=== PATIENT | female | born 2000 | race Caucasian/White ===

== ENCOUNTER 2023-09-01 14:52 | Emergency (ER) | payer BC, SELFPAY ==
--- NOTE | 2023-09-01 15:00 | ED.GENADULT ---
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 She denies any concerns today. Related Data Home Medications Medication Instructions Recorded Confirmed escitalopram oxalate 10 mg tablet 15 mg PO DAILY 09/01/23 09/01/23 norethindrone 1 mg-ethinyl 1 tablet PO DAILY 09/01/23 09/01/23 estradiol 20 mcg (21)-iron 75 mg (7) tablet (Fuentes Fe 04/23 (28)) Allergies Allergy/AdvReac Type Severity Reaction Status Date / Time No Known Allergies Allergy Unknown Unverified 09/01/23 15:01 Review of Systems Review of Systems: Pertinent positives per HPI. Patient denies any fever, chills, rash, headache, visual changes, dizziness, cough, runny nose, sore throat, shortness of breath, chest pain, palpitations, nausea, vomiting, diarrhea, constipation, abdominal pain, or any urinary issues. PMFSH Comments At the time of my signature, I reviewed and agree with the nursing past medical, surgical, social, and family history. There is no relevant family history pertinent to the patient complaint. Exam Narrative: General: Well-developed, well nourished, in no apparent distress Head: Normocephalic, atraumatic Eyes: Pupils round and reactive to light bilaterally, EOM intact, sclera and conjunctive clear, no discharge, lids normal Ears: TMs intact and clear, ear canals clear, no drainage, grossly hearing normal. Nose: Patent, no discharge, no inflammation, no sinus tenderness. Mouth: Oral pharynx normal without lesions or masses, good dentition, MMM. Neck: Supple, trachea midline, no enlargement of anterior or posterior cervical nodes, no thyroid masses palpable. Lymph: No lymphadenopathy Chest: Normal chest wall appearance, even chest rise and fall with respirations, non-tender with palpation. Cardio: Regular rate and rhythm, s1 and s2 normal, no murmurs appreciated. Resp: Clear to auscultation bilaterally, no rhonchi, rales, wheezing or rubs. Abdomen: Soft, pliable, bowel sounds present in all quadrants, non-tender to palpation, no CVAT tenderness. Musculoskeletal: No deformity, non-tender to palpation, grossly normal range of motion, muscle strength strong and equal. Normal gait and station Neuro: No focal deficits, cranial nerves 1-12 intact, sensation within normal limits, Romberg test negative. Extremities: No deformity, no edema, no cyanosis, capillary refill less than 2 seconds, peripheral pulses palpable and strong. Integumentary: [place], warm, and dry, intact without lesion, no rashes. Psych: Alert and oriented x 4, Normal mood and affect, pleasant, good insight and goal oriented. Course Course Emergency Course: Portions of this record may have been created with voice recognition software. Level of Care: Express Care Visit Vital Signs Vital signs: Vital signs reviewed Medical Decision Making MDM Narrative Medical decision making narrative: At the time of visit patient is resting comfortably on the exam table. Patient appears to be nontoxic. 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 Patient has normal exam in the clinic today. Unfortunately we are not able to offer her a update tetanus or completion of the TB testing in the clinic today and recommend her get these done at the health department. Supportive measures were discussed with the patient and they voiced understanding discharge instructions and agrees to treatment plan. Return precautions reviewed Differential Diagnosis Differential Diagnosis: Encounter for wellness exam, normal exam, exam with abnormal findings Discharge Plan Discharge Clinical Jorge Luis
[2023-09-01 15:04] VITALS: BP 132/87; PULSE 107; RESP 20; TEMP 36.8; O2SAT 100
== END 2023-09-01 15:27 | disposition home or self-care (01) ==
PROVIDERS: Emergency Provider Nurse Practitioner Family; PCP Family Medicine
DX: Z00.00 Encounter for general adult medical examination without abnormal findings (principal); F41.9 Anxiety disorder, unspecified
CPT/HCPCS: 99211; G0463

== ENCOUNTER 2023-10-02 10:03 | Emergency (ER) | payer BC, SELFPAY ==
[2023-10-02 10:17] VITALS: BP 118/68; PULSE 107; RESP 16; TEMP 36.4; O2SAT 100
--- NOTE | 2023-10-02 10:32 | ED.UPPEXIN ---
HPI - Extremity Injury (Upper) General Chief Complaint: Ear Stated Complaint: HEAD CONGESTION/EARACHE Time Seen by Provider: 10/02/23 10:20 Source: patient and RN notes reviewed Mode of arrival: ambulatory Limitations: no limitations History of Present Illness HPI narrative: Patient presents today with a one-week history nasal congestion bilateral ear pressure. Denies any additional symptoms to include sore throat, cough fever. Denies known sick contacts. She has been taking Zyrtec, Tylenol, and ibuprofen without much relief. Related Data Home Medications Medication Instructions Recorded Confirmed escitalopram oxalate 10 mg tablet 15 mg PO DAILY 09/01/23 10/02/23 norethindrone 1 mg-ethinyl 1 tablet PO DAILY 09/01/23 10/02/23 estradiol 20 mcg (21)-iron 75 mg (7) tablet (Fuentes Fe 04/23 (28)) Allergies Allergy/AdvReac Type Severity Reaction Status Date / Time No Known Allergies Allergy Unknown Verified 10/02/23 10:17 Review of Systems Review of Systems: CONSTITUTIONAL: Denies body aches, fever, chills, or sweats. EYES: Denies visual changes, redness, or discharge. ENT: Denies rhinorrhea, sore throat. + bilateral ear pressure, congestion CARDIOVASCULAR: Denies chest pain, palpitations, or edema. RESPIRATORY: Denies cough or dyspnea. GASTROINTESTINAL: Denies abdominal pain, nausea, vomiting, or diarrhea. GENITOURINARY: Denies dysuria or hematuria. SKIN: Denies rash, itching, or wounds. MUSCULOSKELETAL: Denies back pain, joint pain, or myalgia. NEUROLOGIC: Denies headache, numbness, tingling, or weakness. PSYCH: Denies depression or anxiety. PMFSH Comments At time of signature, I have reviewed and agree with nursing past medical, surgical, social and family history unless otherwise noted. Please see nursing chart for further information. There is no relevant family history pertinent to the presenting complaint Exam Narrative: GENERAL: Well-appearing, well-nourished, and in no acute distress. HEAD: Normocephalic, atraumatic. EYES: EOMI. No redness or drainage. Conjunctivae normal. ENT: Mucous membranes pink and moist. Nares congested with rhinorrhea. TMs normal bilaterally. Throat normal. Uvula midline. NECK: Normal AROM. CHEST: No respiratory distress. Clear to auscultation. HEART: Regular rate and rhythm. No murmur appreciated. EXTREMITIES: Normal range of motion. No edema. SKIN: Warm, dry, no rash. Capillary refill normal. Normal skin turgor. NEURO: No focal deficits. Alert and oriented x3. Gait steady. PSYCH: Normal affect. No signs of depression or anxiety. Course Course Level of Care: Express Care Visit Vital Signs Vital signs: Vital Signs Temperature 97.6 F 10/02/23 10:17 Pulse Rate 107 H 10/02/23 10:17 Respiratory Rate 16 10/02/23 10:17 Blood Pressure 118/68 10/02/23 10:17 Pulse Oximetry 100 10/02/23 10:17 Oxygen Delivery Room Air 10/02/23 10:17 Temperature 97.6 F 10/02/23 10:17 Pulse Rate 107 H 10/02/23 10:17 Respiratory Rate 16 10/02/23 10:17 Blood Pressure 118/68 10/02/23 10:17 Pulse Oximetry 100 10/02/23 10:17 Oxygen Delivery Room Air 10/02/23 10:17 Reviewed MDM - Extremity Injury (Upper) MDM Narrative Medical decision making narrative: Patient's symptoms are due to viral URI. Discussed [id number] medication use and duration of illness. No prescription medications indicated at this time. Anticipatory guidance given. ED precautions given Differential Diagnosis Differential diagnosis: Likely other (URI, AOM, serous otitis, sinusitis) Critical Care Time Critical Care Time Critical Care Time: No Discharge Plan Discharge Clinical Impression: Upper respiratory infection Qualifiers: URI type: unspecified URI Qualified Code(s): J06.9 - Acute upper respiratory infection, unspecified Patient Disposition: Home, Self-Care Condition: Stable Instructions: Upper Respiratory Infection (DC) Additional Ins
== END 2023-10-02 10:38 | disposition home or self-care (01) ==
PROVIDERS: Emergency Provider Nurse Practitioner; PCP Family Medicine
DX: J06.9 Acute upper respiratory infection, unspecified (principal)
CPT/HCPCS: 99211; G0463

== ENCOUNTER 2024-02-16 14:45 | Emergency (ER) | payer BC, SELFPAY ==
--- NOTE | 2024-02-16 14:47 | ED.URI ---
HPI - URI/Sore Throat General Chief Complaint: Upper Respiratory Infection Stated Complaint: Sore Throat/Eye Time Seen by Provider: 02/16/24 14:46 Source: patient Mode of arrival: ambulatory Limitations: no limitations History of Present Illness HPI Narrative: Maylin is a 23-year-old female patient presenting to the clinic today with complaints of sore throat, nasal congestion, cough, and left eye drainage. She reports symptoms started 3-4 days ago. She denies any known fever. Denies any fever chills. States that her eye was matted shut this morning and she has some eye irritation. Denies any foreign body or injury to the left eye. Green mucopurulent discharge noted MD elicited complaint: sore throat and nasal congestion Related Data Home Medications Medication Instructions Recorded Confirmed escitalopram oxalate 10 mg tablet 15 mg PO DAILY 09/01/23 10/02/23 norethindrone 1 mg-ethinyl 1 tablet PO DAILY 09/01/23 10/02/23 estradiol 20 mcg (21)-iron 75 mg (7) tablet (Fuentes Fe 04/23 (28)) Allergies Allergy/AdvReac Type Severity Reaction Status Date / Time No Known Allergies Allergy Unknown Verified 10/02/23 10:17 Review of Systems Review of Systems: Pertinent positives per HPI. Patient denies any fever, chills, rash, headache, visual changes, dizziness, shortness of breath, chest pain, palpitations, nausea, vomiting, diarrhea, constipation, abdominal pain, or any urinary issues. PMFSH Comments At the time of my signature, I reviewed and agree with the nursing past medical, surgical, social, and family history. There is no relevant family history pertinent to the patient complaint. Exam Narrative: General: Well-developed, obese, in no apparent distress Head: Normocephalic, atraumatic Eyes: Pupils equally round and reactive to light bilaterally, EOM intact, right sclera and conjunctive clear, no discharge, lids normal, left sclera and conjunctiva injected with green mucopurulent discharge noted in the inner canthus Ears: TMs intact and congested ear canals clear, no drainage, grossly hearing normal. Nose: Nares patent, clear nasal discharge, no inflammation, no sinus tenderness. Mouth: Oral pharynx red without lesions or masses, good dentition, MMM. Neck: Supple, trachea midline, no enlargement of anterior or posterior cervical nodes, no thyroid masses or goiter palpable. Cardio: Regular rate and rhythm, s1 and s2 normal, no murmur appreciated. Resp: Clear to auscultation bilaterally, no rhonchi, rales, wheezing or rubs Course Course Emergency Course: Portions of this record may have been created with voice recognition software. Level of Care: Express Care Visit Vital Signs Vital signs: Vital signs reviewed MDM - URI/Sore Throat MDM Narrative Medical decision making narrative: At the time of visit patient is resting comfortably on the exam table. Patient appears to be nontoxic. Labs: Strep test was negative in the clinic today. We will send strep for culture if this comes back positive we will contact him place you on antibiotics at that time Plan: I suspect patient has conjunctivitis with URI/pharyngitis. Prescription for polymyxin eyedrops was sent to the pharmacy. Supportive measures were discussed with the patient and they voiced understanding discharge instructions and agrees to treatment plan. Return precautions reviewed Differential Diagnosis Differential diagnosis: Likely upper respiratory infection, otitis media, sinusitis, viral infection, bronchitis, influenza, pharyngitis and other (COVID) Discharge Plan Discharge Clinical Impression: Upper respiratory infection Qualifiers: URI type: unspecified URI Qualified Code(s): J06.9 - Acute upper respiratory infection, unspecified Pharyngitis Qualifiers: Pharyngitis/tonsillitis etiology: unspecified etiology Qualified Code(s): J02.9 - Acute pharyngitis, unspecified Conjunctivitis Qualifiers: Conjunctivitis type: acute Acute conjunctivitis type: unspecified Laterality: left Qualified Code(s): H10.32 - Unspecified acute conjunctivitis, left eye Patient Disposition: Home, Self-Care Condition: Stable Instructions: Antibiotic Form, Pharyngitis (ED), Cold Symptoms (ED), Conjunctivitis (ED) Additional Instructions: Strep test was negative in the clinic today. We will send strep for culture. Take prescription medications only as prescribed-polymyxin eyedrops Increase fluids and stay well hydrated Tylenol/motrin for pain/fever Flonase and OTC antihistamines as directed Vicks vapor rub to open sinuses Sinus rinses for congestion Cepacol spray, cough drops, throat lozenges, warm tea with honey/lemon, gargle salt water to soothe throat BRAT diet for diarrhea Clear liquids x 24 hours then advance as tolerated for nausea/vomiting Go to the ED if you develop a worsening in your condition- high fever not controlled by Tylenol or Motrin, dehydration, weakness, lethargy, shortness of breath, or chest pain. Follow up with your PCP in 3-5 days if symptoms persist. Prescriptions: New polymyxin B sulf-trimethoprim 10,000 unit- 1 mg/mL drops 1 drp LEFT EYE Q3H 7 Days Qty: 10 0RF Rx Instructions: while awake; do not exceed 6 doses in 24 hours No Action norethindrone-e.estradiol-iron [Fuentes Fe 04/23 (28)] 1 mg-20 mcg (21)/75 mg (7) tablet 1 tablet PO DAILY escitalopram oxalate 10 mg tablet 15 mg PO DAILY Follow-up/Referrals: UNKNOWN,DOCTOR [Non-Staff] - Stand Alone Forms: Work/School Release IP Time of Disposition: 15:11 Quality NIHSS Nursing Documentation ED NIHSS nursing documentation: reviewed/agree
[2024-02-16 15:07] VITALS: BP 124/85; PULSE 117; RESP 16; TEMP 36.6; O2SAT 99
[2024-02-16 15:09] LABS: EDSTREPNEGPOS1 Negative (Negative)
== END 2024-02-16 15:25 | disposition home or self-care (01) ==
PROVIDERS: Emergency Provider Nurse Practitioner Family
DX: J06.9 Acute upper respiratory infection, unspecified (principal); J02.9 Acute pharyngitis, unspecified; H10.32 Unspecified acute conjunctivitis, left eye; F41.9 Anxiety disorder, unspecified
CPT/HCPCS: 87081; 87880; 99213; G0463

== ENCOUNTER 2024-09-22 15:36 | Emergency (ER) | payer OTHER, SELFPAY ==
[2024-09-22 15:39] VITALS: BP 143/76; PULSE 127; RESP 20; TEMP 36.4; O2SAT 99
--- NOTE | 2024-09-22 16:29 | ED_ITS ---
HPI - General Adult General Chief complaint: Headache Stated complaint: head ache, sinus issues Time Seen by Provider: 09/22/24 15:55 History of Present Illness HPI narrative: This is a 23-year-old female presenting for viral syndrome. 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 Her mostly since about includes body aches, nausea and diarrhea. She has been treated multiple times with steroids and nebulizers and other medications which she states do not really help. Related Data Home Medications ?Medication ?Instructions ?Recorded ?Confirmed ?Last Taken ?Type escitalopram oxalate 10 mg tablet 15 mg PO DAILY 09/01/23 02/16/24 Unknown History norethindrone 1 mg-ethinyl 1 tablet PO DAILY 09/01/23 02/16/24 Unknown History estradiol 20 mcg (21)-iron 75 mg (7) tablet (Fuentes Fe 04/23 ()) Allergies Allergy/AdvReac Type Severity Reaction Status Date / Time No Known Allergies Allergy Unknown Verified 09/22/24 15:43 Exam Narrative: APPEARANCE: No apparent distress. Well-appearing Head: atraumatic. EYES: EOMI, NOSE: Atraumatic NECK: Trachea midline RESPIRATORY: No increased rate of breathing clear to auscultation CARDIOVASCULAR: RRR, no peripheral edema ABDOMINAL: Non-distended soft nontender MUSCULOSKELETAl: No obvious deformities NEURO: Alert. Moving 4/4 extremities SKIN:: Warm, dry. Normal color PSYCHIATRIC: Normal affect Course Vital Signs Vital signs: Vital Signs Temperature 97.6 F 09/22/24 15:39 Pulse Rate 127 H 09/22/24 15:39 Respiratory Rate 20 09/22/24 15:39 Blood Pressure 143/76 H 09/22/24 15:39 Pulse Oximetry 99 09/22/24 15:39 Temperature 97.6 F 09/22/24 15:39 Pulse Rate 127 H 09/22/24 15:39 Respiratory Rate 20 09/22/24 15:39 Blood Pressure 143/76 H 09/22/24 15:39 Pulse Oximetry 99 09/22/24 15:39 Medical Decision Making MDM Narrative Medical decision making narrative: -Course: 23-year-old female presenting with viral symptoms. Patient initially tachycardic at 1 7. This improved to 107 without intervention. Review of the EMR shows the patient has always tach in the low 100s. Patient is well appearing overall. 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 Patient educated on expected course of these illnesses and symptomatic treatment. Patient discharged with return precautions. -DDX includes but is not limited to: Viral syndrome, bronchitis, COVID, flu pneumonia Vital Signs Vital Signs: Vital Signs Temperature 97.6 F 09/22/24 15:39 Pulse Rate 127 H 09/22/24 15:39 Respiratory Rate 20 09/22/24 15:39 Blood Pressure 143/76 H 09/22/24 15:39 Pulse Oximetry 99 09/22/24 15:39 Temperature 97.6 F 09/22/24 15:39 Pulse Rate 127 H 09/22/24 15:39 Respiratory Rate 20 09/22/24 15:39 Blood Pressure 143/76 H 09/22/24 15:39 Pulse Oximetry 99 09/22/24 15:39 Lab Data Labs: Lab Results 09/22/24 Range/Units 16:11 Influenza A (RT-PCR) Pending Influenza B (RT-PCR) Pending RSV (RT-PCR) Pending SARS-CoV-2 RNA (RT-PCR) Pending Discharge Plan Discharge Clinical Impression: Acute viral syndrome Patient Disposition: Home Condition: Stable Instructions: Antibiotic Form, Viral Syndrome (ED) Additional Instructions: You were seen in the emergency department for a viral syndrome. Use Motrin Tylenol for body aches. Can use [id number] Pepto-Bismol for diarrhea. Use Zofran for nausea. Return if you feel your getting worse or if you develop any new or worsening symptoms. Otherwise please follow-up your primary care physician. Patient Language: Welsh Prescriptions: New ondansetron 4 mg tablet,disintegrating 4 mg PO Q8H PRN (Reason: nausea and vomiting) Qty: 30 0RF No Action norethindrone-e.estradiol-iron [Fuentes Fe 04/23 ()] 1 mg-20 mcg (21)/75 mg (7) tablet 1 tablet PO DAILY escitalopram oxalate 10 mg tablet 15 mg PO DAILY polymyxin B sulf-trimethoprim 10,000 unit- 1 mg/mL drops 1 drp LEFT EYE Q3H 7 Days Qty: 10 0RF Rx Instructions: while awake; do not exceed 6 doses in 24 hours Follow-up/Referrals: PHYSICIAN,[facility]ER [Primary Care Provider] -
[2024-09-22 16:36] VITALS: BP 119/68; PULSE 104; RESP 17; TEMP 36.5; O2SAT 100
[2024-09-22 16:57] LABS: Influenza A QL RT-PCR Negative (Negative); Influenza B QL RT-PCR Negative (Negative); RSV RNA, RT-PCR Negative (Negative); SARS-CoV-2 RNA PCR Negative (Negative)
== END 2024-09-22 17:08 | disposition home or self-care (01) ==
PROVIDERS: Emergency Provider Emergency Medicine
DX: B34.9 Viral infection, unspecified (principal); Z20.822 Contact with and (suspected) exposure to COVID-19
CPT/HCPCS: 87637; 99283

== ENCOUNTER 2024-11-26 11:11 | Emergency (ER) | payer OTHER, SELFPAY ==
--- NOTE | ~2024-11-26 | CT_ITS ---
EXAMINATION: CT abdomen pelvis w con DATE: 11/26/2024 14:25 INDICATION: Abdominal pain TECHNIQUE: Computed tomography (CT) of the abdomen and pelvis was performed without intravenous contrast. The dose-length product was 669.49 mGy-cm. COMPARISON: None. FINDINGS: Lung bases are unremarkable. Heart size normal. No significant pleural or pericardial effusion. Fatty infiltration of the liver. Nonobstructive bowel gas pattern. The spleen, pancreas, adrenal glands and kidneys are unremarkable. Small hiatal hernia. No free air or free fluid. There is thickening of the descending colon, sigmoid colon and rectum, suspicious for colitis, most likely infectious or inflammatory. No acute osseous abnormality. IMPRESSION: 1. Mild thickening of the left colon and rectum, suspicious for colitis, most likely infectious/inflammatory. Reviewed, dictated and finalized at location O. IMPRESSION: 1. Mild thickening of the left colon and rectum, suspicious for colitis, most l ikely infectious/inflammatory.
[2024-11-26 11:38] VITALS: BP 127/87; PULSE 106; RESP 16; TEMP 36.4; O2SAT 100
--- OUTSIDE RECORDS SUMMARY | 2024-11-26 11:52 | XMS_ITS | Patient Health Record ---
Author Organization [facility] [employer] [facility] Address [address] [place] [address] Care Team Providers Care Weave Defect Charting Clerk Name Role Phone Eugenia Chavez Unavailable [phone] Allergies No Known Allergies Reason For Referral No Information Medications Medication SIG (Take, Route, Frequency, Duration) Notes Start Date End Date Status Escitalopram Oxalate 20 MG Tablet 1 tablet Oral Once a day; Duration: 90 days Active Fuentes Fe 04/23 1-20 MG-MCG Tablet Oral 08/05/2023 Active traZODone HCl 50 MG Tablet 1 tablet at b edtime as needed Orally Once a day; Duration: 90 days Active Immunizations Vaccine Route Administration Date Status Comme nts DTaP Unknown 02/09/2002 Administered DTaP Unknown 04/11/2002 Administered DTaP Unknown 06/05/2002 Administered DTaP Unknown 08/02/2007 Administered Hep A, ped/adol, 2 dose Unknown 11/27/2012 Administered Hep A, ped/adol, 2 dose Unknown 11/27/2013 Administered Hep B, adolescent or pediatr ic (11-19), 3 dose schedule Unknown 2001 Administered Hep B, adolescent or pediatr ic (11-19), 3 dose schedule Unknown 01/10/2003 Administered Hib, unspecified formulation Unknown 04/11/2002 Adminis tered Hib, unspecified formulation Unknown 06/12/2002 Adminis tered Hib, unspecified formulation Unknown 01/10/2003 Adminis tered Hib-Hep B Unknown 02/09/2002 Administered HPV (human papillomavirus), quadrivalent, 3 dose schedule Unknown 11/27/2012 Administered HPV9 (human papillomavirus), nonavalent Unknown 12/27/2019 Administered Influenza virus vaccine, quadrivalent (IIV4), split virus, 0.25 mL dosage Unknown 04/19/2015 Administered Influenza virus vaccine, quadrivalent (IIV4), split virus, 0.25 mL dosage Unknown 01/06/2018 Administered IPV Unknown 02/09/2002 Administered IPV Unknown 04/11/2002 Administered IPV Unknown 06/12/2002 Administered IPV Unknown 08/02/2007 Administered Meningococcal B, OMV Unknown 12/27/2019 Administered Meningococcal B, OMV Unknown 01/28/2020 Administered Meningococcal MCV4O Unknown 01/06/2018 Administered Meningococcal MCV4P Unknown 11/27/2013 Administered MMR Unknown 01/10/2003 Administered MMR Unknown 08/02/2007 Administered Novel [id number], preservative free Unknown 05/18/2023 Administered Pneumococcal conjugate PCV 7 Unknown 04/11/2002 Adminis tered Pneumococcal conjugate PCV 7 Unknown 06/12/2002 Adminis tered Pneumococcal conjugate PCV 7 Unknown 09/29/2002 Adminis tered Pneumococcal conjugate PCV 7 Unknown 01/10/2003 Adminis tered Tdap Unknown 11/27/2013 Administered Varicella Unknown 04/05/2003 Administered Varicella Unknown 08/02/2007 Administered Social History Tobacco Use: Social History Observation Description Date Details (start date - stop date) Current Smoker NA - NA Sex Assigned At : Social History Observation Description Sex Assigned At Female Social History Miscellaneous: Social Info Question Answer Notes Advance Care Planning Are you your own decision-maker Yes Do you have Power of Primary Teaching Assistant for Health or Medi juan antonio? No Tobacco Use: Social Info Question Answer Notes Tobacco Control (Standard) Tobacco use: Current smoker Additional Details Category Social Info Options Details Migrated Social History Migrated Social History Alcohol Intake: Occasional 08/05/2023,Tobacco Years: Never smoker 05/19/2023 Problems Problem Type SNOMED Code ICD Code Onset Dates Problem Status W/U Status Risk Notes Problem Generalized anxiety disorder (F41.1) Active confirmed Vital Signs Heart Rate 98 /min 10/15/2024 Height-cm 160.02 cm 10/15/2024 Blood pressure diastolic 82 mm Hg 10/15/2024 Weight-kg 94.35 kg 10/15/2024 Height 63.00 in 10/15/2024 Blood pressure systolic 130 mm Hg 10/15/2024 Weight 208 lbs 10/15/2024 BMI 36.84 kg/m2 10/15/2024 Encounters Encounter Location Date Provider Diagnosis [facility] [address] [facility] [address] [address] 01/09/2024 Eugeniaterry Chavez Generalized anxiety disorder F41.[address] [facility] [address] [place] [address] 04/16/2024 Eugeniaterry Chavez Generalized anxiety disorder F41.[address] [address] 10/15/2024 Eugeniaterry Chavez Generalized anxiety disorder F41.[address] [facility] [address] [place] [address] 03/30/2024 Eugenia Scott [address] [address] 07/30/2024 Eugeniaterry [facility] Assessments Encounter Date Diagnosis (ICD Code) Assessment Notes Treatment Notes Treatment Clinical Notes Section Notes 01/09/2024 Generalized anxiety disorder (ICD-10 - F41.1) Common side effects to SSRI medications include headaches, dry mouth/eye, GI upset (including indigestion, nausea, diarrhea), sleeping problems (insomnia or drowsiness), decreased libido, blurred vision, dizziness. Generally, side effects will subside or lessen with time and are common during drug initiation and dose changes. If they persist please contact the office. 04/16/2024 Generalized anxiety disorder (ICD-10 - F41.1) Common side effects to SSRI medications include headaches, dry mouth/eye, GI upset (including indigestion, nausea, diarrhea), sleeping problems (insomnia or drowsiness), decreased libido, blurred vision, dizziness. Generally, side effects will subside or lessen with time and are common during drug initiation and dose changes. If they persist please contact the office. 10/15/2024 Generalized anxiety disorder (ICD-10 - F41.1) Common side effects to SSRI medications include headaches, dry mouth/eye, GI upset (including indigestion, nausea, diarrhea), sleeping problems (insomnia or drowsiness), decreased libido, blurred vision, dizziness. Generally, side effects will subside or lessen with time and are common during drug initiation and dose changes. If they persist please contact the office. 01/09/2024 Other Increase Lexapro to 20mg daily for anxiety. Start Trazodone 50mg qHS PRN for insomnia Patient educated on all medications including potential benefits, side effects, risks. Educated on proper dosing schedule and importance of compliance. 04/16/2024 Other Stable, continue current medications. Refills sent in. Patient educated on all medications including potential benefits, side effects, risks. Educated on proper dosing schedule and importance of compliance. -Assessment and treatment plan reviewed with patient. -Compliance with treatment plan importance discussed. -Discussed the risks/benefits of this medication -Discussed medication side effects. -Contact office if symptoms worsen. -Discussed that it can take up to 6-8 weeks to see full therapeutic effects of psychotropic medications. -Crisis prevention hotline [phone]. 10/15/2024 Other Stable on current medication regimen, continue at current doses. -Refills sent in today -No concerns today Patient educated on all medications including potential benefits, side effects, risks. Educated on proper dosing schedule and importance of compliance. -Assessment and treatment plan reviewed with patient. -Compliance with treatment plan importance discussed. -Discussed the risks/benefits of this medication -Discussed medication side effects. -Contact office if symptoms worsen. -Discussed that it can take up to 6-8 weeks to see full therapeutic effects of psychotropic medications. -Crisis prevention hotline [phone]. Plan Of Treatment Next Appt Details Provider Name:Eugenia doherty, 03/18/2025 01:00:00 PM, [address] [facility] [address], [facility] [address] [place], [address], Insurance Providers Payer Name Payer Address Payer Phone Subscriber Number Group Number Insured Name Patient Relationship to Insured Coverage Start Date Coverage End Date [employer] [place] [id number] [place] [address] [id number] JASS LYNNE Self - patient is the insured Medical (General) History Medical History History ICD Code Problems: Generalized anxiety disorder Obesity Patient encounter status , Hospitalization History Reason Date(Month/Year) no hx [facility] admissions
--- OUTSIDE RECORDS SUMMARY | 2024-11-26 11:52 | XMS_ITS | Clinical Summary ---
Author Organization [facility] Medical Office Building A Address [address] [place] [address] Care Team Providers Care Gift Consultant Name Role Phone Johanna Batista MD Primary Care Provide r Eugenia Camarillo [employer] Unavailable [phone] Wayne Fitzpatrick MD Unavailable Meera Gardner MD Unavailable [phone] Allergies No known active allergies Medications Fuentes Fe 04/23, , 1 mg-20 mcg (21)/75 mg (7) per tablet Take 1 tablet by mouth daily Active escitalopram (LEXAPRO) 20 mg tablet Take 1 tablet (20 mg total) by mouth daily Active albuterol HFA (PROVENTIL HFA,VENTOLIN HFA,PROAIR HFA) 90 mcg/actuation inhalerIndicatio ns:Cough, unspecified type,Bronchitis Inhale 2 puffs every 6 (six) hours as needed for wheezing 1 each 1 5 Active traZODone (DESYREL) 50 mg tablet Take 1 tablet (50 mg total) by mouth nightly 5 Active ibuprofen (ADVIL,MOTRIN) 800 mg tablet Take 1 tablet (800 mg total) by mouth 3 (three) times a day 90 tablet 5 Active lidocaine (ASPERCREME) 4 % adhesive patch,medicated Place 1 patch on the skin daily for 12 hours 30 patch 5 Active Active Problems Problem Noted Date Diagnosed Date Thrombocytosis 2023 Assessment & Plan (06/11/2024 2:38 PM CDT): Chronic Stable Continue following with oncology Anxiety 05/18/2023 Assessment & Plan (06/11/2024 2:37 PM CDT): chronic Continue lexapro 20mg daily Denies SI/HI Report to the ER should this occur Managed by psychiatry F/u prn Assessment & Plan (07/01/2023 11:35 PM CDT): Improved Continue lexapro 10mg daily Denies SI/HI Report to the ER should this occur Continue following therapy and they will take over the medication F/u in prn Assessment & Plan (05/18/2023 10:23 AM SHOP FOREMAN): New concern Not at goal EMILY score of 8 Will refer to therapy Start lexapro 10mg daily Denies SI/HI Report to the ER should this occur F/u in 6 weeks for monitoring Risks and benefits discussed Class 2 obesity due to exces s calories without serious comorbidity with body mass index (BMI) of 36.0 to 36.9 in adult 05/18/2023 Assessment & Plan (06/11/2024 2:38 PM CDT): She was counseled on the importance of maintaining a healthy weight and the risks of obesity. Weight loss recommended. Encourage 150min/ week of exercise Encourage 1500 calories in a day for weight loss Assessment & Plan (05/18/2023 11:18 AM SHOP FOREMAN): She was counseled on the importance of maintaining a healthy weight and the risks of obesity. Weight loss recommended. Encourage 150min/ week of exercise Encourage 1500 calories in a day for weight loss Encounter for wellness examination 05/17/2023 Assessment & Plan (06/08/2024 2:07 PM SHOP FOREMAN): Labs reviewed and discussed Flu Pap smear follows with [facility] tdap F/u in 1 year for annual Assessment & Plan (05/18/2023 10:15 AM SHOP FOREMAN): Ordered CBC, cmp, lipid, hgb a1c, HIV, hep c, TSH w/ reflex to t4 gc chlamydia Flu given Pap smear follows with ob [facility] F/u in 1 year for annual Encounters Date Type Department Care Team Description 10/15/2024 3:30 PM CDT Office Visit [facility] Primary Care at [address] [address] Johanna Morales MD Pain of right hip (Primary Dx) 09/19/2024 Results Follow-Up [facility] Primary Care at [address] [phone] Johanna Morales MD XR Chest PA Lateral 2 Views 09/17/2024 2:10 PM CDT - 09/17/2024 11:59 PM CDT Hospital Encounter [facility] [address] [place] [address] Cough, unspecified type; Bronchitis Discharge Disposition: Discharge to home or self care 09/17/2024 1:30 PM CDT Office Visit [facility] Primary Care at [address] [address] Johanna Morales MD Cough, unspecified type (Primary Dx); Bronchitis from Last 3 Months Immunizations Immunization Administration Dates Next Due DTaP 08/02/2007, 3,04/11/2002,02/09 HPV, Quadrivalent 11/27/2012 HPV9 12/27/2019 Hep A, Pediatric 11/27/2013,11/27/2012 Hep B / HiB 02/09/2002 Hep B, Adolescent or Pediatric 01/10/2003,2001 HiB 01/10/2003,06/12/2002,04/11/2002 IPV 08/02/2007, 3,04/11/2002,02/09 Influenza, Live, Intranasal, Quadrivalent 04/19/2015 Influenza, Quadrivalent, Spl it, Intramuscular 01/06/2018,04/19/2015 Influenza, Quadrivalent, Spl it, Preservative Free, Intramuscular 05/18/2023 Influenza, Unspecified 01/04/2024,2023(Deferred: Patient Refused),01/07/2023 MMR 08/02/2007,01/10/2003 Meningococcal B, OMV (Bexsero) 01/28/2020,2019 Meningococcal B, unspecified 01/28/2020,12/27/19 20 Meningococcal Conjugate (Menveo) 01/06/2018 Meningococcal MCV4P (Menactra) 11/27/2013 Pneumococcal Conjugate 7-Valent 01/11/20 03,09/29/2002,06/12/2002,04/11 Tdap 11/27/2013 Varicella 08/02/2007,04/05/2003 Medical History Medical History Date Comments Anxiety Offically May 2023 Family History Medical History Relation Name Comments Alcohol abuse Father Sami Anxiety disorder Father Sami Mental illness Father Sami Cancer Maternal Grandfather Hema Diabetes Maternal Grandfather Hema Diabetes type II Maternal Grandfather Hema Hypertension Maternal Grandfather Hema Anxiety disorder Maternal Grandmother Flores Hearing loss Maternal Grandmother Flores Skin cancer Maternal Grandmother Flores Alcohol abuse Mother Elo Allergy (severe) Mother Elo Anxiety disorder Mother Elo Mental illness Mother Elo Obesity Mother Elo Diabetes type II Mother's Sister 1 bi polar Mother's Sister 1 Mental illness Mother's Sister 2 Rae Obesity Mother's Sister 2 Rae Rashes / Skin problems Mother's Sister 2 Rae Diabetes type II Paternal Grandfather Skin cancer Paternal Grandfather Diabetes Paternal Grandmother Whit Diabetes type II Paternal Grandmother Whit Heart attack Paternal Grandmother Whit Miscarriages / Stillbirths Paternal Grandmother Whit Obesity Paternal Grandmother Whit Rashes / Skin problems Paternal Grandmother Whit Anxiety disorder Sister 1 Depression Sister 2 Pamela Mental illness Sister 2 Pamela Relation Name Status Comments Father Sami Alive Maternal Grandfather Hema Alive Maternal Grandmother Flores Alive Mother Elo Alive Mother's Sister 1 Mother's Sister 2 Rae Alive Paternal Grandfather Paternal Grandmother Whit Alive Sister 1 Sister 2 Pamela Alive Social History Tobacco Use Types Packs/Day Years Used Date Smoking Tobacco: Some Days Vaping Passive Smoke Exposure: Current Smokeless Tobacco: Never AUDIT-C Answer Date Recorded Q1: How often do you have a drink containing alc ohol? Monthly or less 12/21/2023 Q2: How many drinks containi ng alcohol do you have on a typical day when you are drinking? 1 or 2 12/21/2023 Frequency of Binge Drinking Not on file 12/03 PHQ-2 Answer Date Recorded PHQ-2 Total Score (If total score is 3 or more points, staff should administer the PHQ-9) 0 10/15/2024 Comments No Sex and Gender Information Value Date Recorded Sex Assigned at Not on file Legal Sex Female 6:21 PM SHOP FOREMAN Gender Identity Female 07/01/2023 10:10 AM CDT Sexual Orientation Straight 07/01/2023 10 :10 AM CDT Obstetrics History Last Filed Vital Signs Vital Sign Reading Time Taken Comments Blood Pressure 114/86 10/15/2024 3:21 PM CDT Pulse 112 10/15/2024 3:21 PM CDT Temperature 37.2 C (98.9 F) 10/15/2024 3:21 PM CDT Respiratory Rate 18 10/15/2024 3:21 PM CDT Oxygen Saturation 96% 10/15/2024 3:21 PM CDT Inhaled Oxygen Concentration - - Weight 94.4 kg (208 lb 3.2 oz) 10/15/2024 3:21 P M CDT Height 160 cm (5' 2.99) 10/15/2024 3:21 PM CDT Body Mass Index 36.89 10/15/2024 3:21 PM CDT Plan of Treatment Health Maintenance Due Date Last Done Comments Chlamydia and Gonorrhea (GC/CT) Screening 05/19/2024 05/19/2023 Influenza Vaccine (#1) 2024 , 05/18/2023, 01/07/2023, Additional history exists Cervical Cancer Screening 03/21/2025 03/21/2024 Pneumococcal vaccine <65 (1 of 1 - PPSV23, PCV20, or PCV21) 05/27/2025 01/10/2003, 09/29/2002, 06/12/2002, Additional history exists Postponed from 12/10/2007 (Patient declined, but will receive in the future) Covid-19 Vaccine ( season) 2025 09/16/2020, 08/19/2020 Postponed from 12/04/2023 (Patient declined, but will receive in the future) DTaP/Tdap/Td Vaccine (6 - Td or Tdap) 06/11/2025 11/27/2013, 08/02/2007, 06/05/2002, Additional history exists Postponed from 11/28/2023 (Patient declined, but will receive in the future) Regular Well Visit/Exam 18-64 06/11/2025 06/11/2024, 05/18/2023 Depression Screening 10/15/2025 10/15/2024, 06/11/2024, 05/18/2023 Hepatitis B Screening Completed 01/10/2003 , 02/09/2002, 2001 Varicella Vaccines Completed 08/02/2007, 04/05/2003 HPV Vaccines Completed 12/27/2019, 11/27/2012 Meningococcal B Vaccine Completed 01/28/20 20, 01/28/2020, 12/27/2019, Additional history exists Hepatitis C Screening Completed 05/19/2023 Procedures Procedure Name Priority Date/Time Associated Diagnosis Comments XR CHEST PA LATERAL 2 VIEWS Schedule Routine, Read Routine (OP Routine) 09/17/2024 2:17 PM CDT Cough, unspecified type Bronchitis POC INFLUENZA A/B, COVID-19 ANTIGEN Routine 09/17/2024 1:30 PM CDT Cough, unspecified type POCT RESPIRATORY SYNCYTIAL VIRUS Routine 09/07/2024 1:30 PM CDT Cough, unspecified type HM PAP SMEAR WITH HPV Routine 03/21/2024 2:14 PM SHOP FOREMAN HEPATITIS C ANTIBODY Routine 05/19/2023 12:50 PM SHOP FOREMAN Preventative health care Need for hepatitis C screening test N. GONORRHOEAE/C. TRACHOMATIS AMPLIFICATION Routine 05/19/2023 12:50 PM SHOP FOREMAN from Last 3 Months or Most Recently Relevant to Health Maintenance Results * XR Chest PA Lateral 2 Views (09/17/2024 2:17 PM CDT) Anatomical Region Laterality Modality Body, Chest N/A Computed Radiogr aphy 09/19/2024 12:1 3 PM CDT Narrative 09/19/2024 12:13 PM CDT EXAM DESCRIPTION: XR CHEST PA LATERAL 2 VIEWS REASON FOR STUDY: cough Cough for 2 weeks No surgery Smoker TECHNIQUE: Frontal and lateral radiographic views of the chest were acquired. COMPARISON: None Available FINDINGS: LUNGS/PLEURA: There is no focal infiltrate or evidence of pneumothorax. No significant pleural effusion. HEART/MEDIASTINUM: The heart size is normal. Normal mediastinal and hilar contours. LINES/TUBES: None. BONES: No acute findings. OTHER: No other significant finding. IMPRESSION: No active cardiopulmonary disease. THIS IS AN ELECTRONICALLY VERIFIED FINAL REPORT 09/19/2024 12:13 PM - Electronically signed by Alvin Reed M.D. RW: [email or web address] Report ID: [id number] Reading Location: [id number] Procedure Note Alvin Reed MD - 09/19/2024 EXAM DESCRIPTION: XR CHEST PA LATERAL 2 VIEWS REASON FOR STUDY: cough Cough for 2 weeks No surgery Smoker TECHNIQUE: Frontal and lateral radiographic views of the chest wereacquired. COMPARISON: None Available FINDINGS: LUNGS/PLEURA: There is no focal infiltrate or evidence of pneumothorax.No significant pleural effusion. HEART/MEDIASTINUM: The heart size is normal. Normal mediastinal and hilar contours. LINES/TUBES: None. BONES: No acute findings. OTHER: No other significant finding. IMPRESSION: No active cardiopulmonary disease. THIS IS AN ELECTRONICALLY VERIFIED FINAL REPORT 09/19/2024 12:13 PM - Electronically signed by Alvin Reed M.D. RW: [email or web address] Report ID: [id number] Reading Location: [id number] Johanna Batista MD IMG XR PROCEDURES Fin al Result * POC Influenza A/B, COVID-19 antigen (09/17/2024 1:30 PM CDT) Pathologist [facility] Influenza A Ag, POC Negative Negative [facility] Influenza B Ag, POC Negative Negative [facility] COVID-19 Ag POC Presumptive Negative Presumptive Negative, Invalid [facility] Nasal 09/17/2024 1:30 PM CDT Johanna Batista MD POINT OF CARE TEST OR DERABLES Final Result [facility] PCP [facility] [address] [facility] [address] [place] [address] * POCT respiratory syncytial virus (09/07/2024 1:30 PM CDT) Pathologist [facility] RSV Rapid Ag Negative Nasal 09/07/2024 1:30 PM CDT Johanna Batista MD POINT OF CARE TEST OR DERABLES Final Result * (ABNORMAL) HM PAP SMEAR WITH HPV (03/21/2024 2:14 PM SHOP FOREMAN) Pathologist [facility] Scribed Pap Smear w/HPV Abnormal [facility] Final Result * N. gonorrhoeae/C. trachomatis Amplification Urine (05/19/2023 12:50 PM SHOP FOREMAN) Pathologist [facility] C. trachomatis Not Detected [facility] ([place]) Comment:Testing performed by : [facility], [address] [facility], [place]., [address] N. gonorrhoeae Not Detected [facility] Comment: Interpretive Data This assay detects Chlamydia trachomatis and Neisseria gonorrhoeae by nucleic acid amplification testing (NAAT). This assay has been cleared by the [place] Food and Drug administration. The performance characteristics of this test have been verified by the [facility] Molecular Infectious Disease laboratory. The performance characteristics of this test have not been evaluated in individuals less than 14 years of age. Current Interpretive Data was last revised on 2023. Testing performed by: [facility], [address] [place] [address]., [id number] Urine 05/19/2023 12:5 0 PM SHOP FOREMAN 05/19/2023 8:06 PM SHOP FOREMAN Johanna Batista MD LAB MICROBIOLOGY - GE NERAL ORDERABLES Final Result [facility] [address] [facility] [place] [address] * Hepatitis C antibody Blood (05/19/2023 12:50 PM SHOP FOREMAN) Hep C Ab Nonreactive Nonreactive [facility] ([place]) Comment: Interpretive Data Nonreactive: Antibodies to HCV not detected. Does NOT exclude the possibility of recent exposure to HCV. Equivocal: Equivocal for HCV antibodies. Supplemental molecular testing will be automatically performed to determine infection status in accordance with current CDC screening recommendations. Reactive: Positive for HCV antibodies. This may represent current or past HCV infection. Supplemental molecular testing will be automatically performed to determine current infection status in accordance with current CDC screening recommendations. Interpretive data was last revised on 2019. Testing performed by: [facility], [address] [place] [address]., [id number] Blood 05/19/2023 12:5 0 PM SHOP FOREMAN 05/19/2023 9:29 PM SHOP FOREMAN Narrative [facility] ([place]) - 05/19/2023 10:13 PM SHOP FOREMAN fasting Johanna Batista MD LAB MICROBIOLOGY - GE NERAL ORDERABLES Final Result [facility] [address] [facility] [employer] [place], [place] [id number] from Last 3 Months or Most Recently Relevant to Health Maintenance Insurance [facility] [employer] [place] Care Teams Gift Consultant Relationship Specialty Start Date End Date Johanna Batista MD [address] [place] [address] PCP - General Family Medicine 05/18/23 Eugenia Camarillo NP [address] [facility] [address] [facility] [address] [place] [address] Psychiatry 06/11/24 Wayne Fitzpatrick MD [address] [facility] [address] [place] [address] Medical Oncologist/Echocardiographer Hematology and Oncology 06/11/24 Meera Gardner MD [address] [facility] [address] [place] [address] Referring Physician Gynecology 06/11/24
--- NOTE | 2024-11-26 13:44 | ED.GENADULT ---
HPI - General Adult General Chief complaint: Nausea/Vomiting/Diarrhea Stated complaint: blood in stool, diarrhea Time Seen by Provider: 11/26/24 13:16 History of Present Illness HPI narrative: 23-year-old morbidly obese female presents to the ER complaining of bright red blood in her his stools for 2 weeks. Patient reports having diarrhea for 2 weeks. 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 Patient reports lower abdominal cramping. Denies nausea or vomiting. Related Data Home Medications ?Medication ?Instructions ?Recorded ?Confirmed ?Last Taken ?Type escitalopram oxalate 10 mg tablet 15 mg PO DAILY 09/01/23 02/16/24 Unknown History norethindrone 1 mg-ethinyl 1 tablet PO DAILY 09/01/23 02/16/24 Unknown History estradiol 20 mcg (21)-iron 75 mg (7) tablet (Fuentes Fe 04/23 ()) Allergies Allergy/AdvReac Type Severity Reaction Status Date / Time No Known Allergies Allergy Unknown Verified 11/26/24 11:12 Review of Systems Review of Systems: All systems reviewed & are unremarkable except as noted in HPI and below Exam Const: General: healthy appearing, no acute distress and alert Nutritional Appearance: well nourished and obese Orientation/consciousness: patient oriented x3 Limitations: no limitations HENMT: Head: normal to inspection Face and sinus: normal facial exam Mouth: Yes Normal oral and palatal mucosa present Neck: Neck: normal visual inspection Chest: Chest palpation & inspection: normal inspection of the chest Resp: Effort & Inspection: normal respiratory effort Auscultation: clear to auscultation bilaterally Cardio: Rate: regular rate Rhythm: regular rhythm GI: GI Palp: Yes Soft to palpation Auscultation: normal bowel sounds Rectal Exam: hemorrhoids Other: External hemorrhoids noted : General: Yes no CVA tenderness Back/Spine/Pelvis: Back: no CVA tenderness Skin: General skin exam: normal color Rashes: no rashes Wounds: no wounds Neuro: General: patient oriented x3, moves all extremities and CN's II-XI intact bilaterally Speech: normal speech Gait exam (Neuro): Normal gait present Extrem: General: normal to inspection Psych: Mental Status: mental status grossly normal Affect: normal affect Attitude: cooperative Course Vital Signs Vital signs: Vital Signs Temperature 36.4 C L 11/26/24 11:38 Pulse Rate 106 H 11/26/24 11:38 Respiratory Rate 16 11/26/24 11:38 Blood Pressure 127/87 11/26/24 11:38 Pulse Oximetry 100 11/26/24 11:38 Oxygen Delivery Room Air 11/26/24 11:38 Temperature 36.4 C L 11/26/24 11:38 Pulse Rate 106 H 11/26/24 11:38 Respiratory Rate 16 11/26/24 11:38 Blood Pressure 127/87 11/26/24 11:38 Pulse Oximetry 100 11/26/24 11:38 Oxygen Delivery Room Air 11/26/24 11:38 Medical Decision Making MDM Narrative Medical decision making narrative: 23-year-old female presents ER complaining of bright red blood in her stool for several days. Patient also admitted to of diarrhea for [address] scan shows evidence of colitis. Lab work was reassuring. Differential diagnosis includes diverticulitis, laboratory bowel disease, colitis, hemorrhoids, anal fissure. External hemorrhoids were noted on exam. Hemorrhoids and colitis or likely the result of the patient's symptoms. Will refer patient to GI for further observation Vital Signs Vital Signs: Vital Signs Temperature 36.4 C L 11/26/24 11:38 Pulse Rate 106 H 11/26/24 11:38 Respiratory Rate 16 11/26/24 11:38 Blood Pressure 127/87 11/26/24 11:38 Pulse Oximetry 100 11/26/24 11:38 Oxygen Delivery Room Air 11/26/24 11:38 Temperature 36.4 C L 11/26/24 11:38 Pulse Rate 106 H 11/26/24 11:38 Respiratory Rate 16 11/26/24 11:38 Blood Pressure 127/87 11/26/24 11:38 Pulse Oximetry 100 11/26/24 11:38 Oxygen Delivery Room Air 11/26/24 11:38 Lab Data 11/26/24 14:08 11/26/24 14:08 Labs: Lab Results 11/26/24 11/26/24 Range/Units 14:08 14:12 WBC 11.0 H (4.5-10.0) K/mm3 RBC 5.18 (4.2-5.4) M/mm3 Hgb 14.0 (12.0-15.0) g/dL Hct 42.8 (37.0-47.0) % MCV 82.6 (80-100) fl MCH 27.0 (26-34) pg MCHC 32.7 (32-36) g/dl RDW 12.6 (11.5-14.5) % Plt Count 475 H (150-375) k/mm3 MPV 9.0 (7.4-10.4) fl Immature Gran % (Auto) 0.3 (0-0.5) % Neut % (Auto) 59.4 (45.5-73.1) % Lymph % (Auto) 28.5 (18.3-44.2) % [place] % (Auto) 7.5 (2.6-8.5) % Eos % (Auto) 3.9 (0-4.4) % Baso % (Auto) 0.4 (0.2-1.2) % Lymph # (Auto) 3.13 (0.9-3.2) K/mm3 [place] # (Auto) 0.8 H (0.1-0.6) K/mm3 Eos # (Auto) 0.4 H (0-0.3) K/mm3 Baso # (Auto) 0.0 (0.0-0.1) K/mm3 Abs Immat Gran (auto) 0.03 (0.00-0.031) K/mm3 Absolute Neuts (auto) 6.5 (1.3-6.7) K/mm3 Absolute Nucleated RBC 0.000 (0.0-0.012) K/mm3 Nucleated RBC % 0.0 (0.0-0.2) % Sodium 138 (137-145) mmol/L Potassium 4.1 (3.4-5.0) mmol/L Chloride 104 (98-107) mmol/L Carbon Dioxide 24 (22-30) mmol/L Anion Gap 10 (4-12) mmol/L BUN 8 (7-17) mg/dL Creatinine 0.82 (0.7-1.0) mg/dL Estim Creat Clear Calc 102 ml/min Estimated GFR > 60 (59 - ) Glucose 89 (65-110) mg/dL Calcium 9.6 (8.4-10.2) mg/dL Total Bilirubin 0.6 (0.2-1.3) mg/dL AST 27 (14-36) U/L ALT 19 (6-35) U/L Alkaline Phosphatase 104 (38-126) U/L Total Protein 8.6 H (6.3-8.2) g/dL Albumin 4.4 (3.5-5.1) g/dL Lipase 57 (23-300) U/L Beta HCG, Quant < 2.39 mIU/ML Urine Color Yellow (Yellow) Urine Appearance Clear (Clear) Urine pH 5.5 (5.0-9.0) Ur Specific Clark 1.025 (1.001-1.035) Urine Protein Negative (Negative) mg/dL Urine Glucose (UA) Negative (Negative) mg/dL Urine Ketones Negative (Negative) mg/dL Ur Blood (Man) Negative (Negative) Urine Nitrate Negative (Negative) Urine Bilirubin Negative (Negative) Urine Urobilinogen 0.2 (<2.0) mg/dL Leukocyte Esterase Rfl Negative (Negative) CARMINA/UL POC Urine HCG, Qual Negative (Negative) Discharge Plan Discharge Clinical Impression: Hemorrhoids, Colitis Patient Disposition: Home Condition: Stable Instructions: Antibiotic Form, Hemorrhoids (DC), Colitis (ED) Patient Language: Kinyarwanda Prescriptions: New hydrocortisone acetate [Anusol-HC] 25 mg suppository 25 mg RECTAL DAILY Qty: 12 0RF No Action norethindrone-e.estradiol-iron [Fuentes Fe 04/23 (28)] 1 mg-20 mcg (21)/75 mg (7) tablet 1 tablet PO DAILY escitalopram oxalate 10 mg tablet 15 mg PO DAILY polymyxin B sulf-trimethoprim 10,000 unit- 1 mg/mL drops 1 drp LEFT EYE Q3H 7 Days Qty: 10 0RF Rx Instructions: while awake; do not exceed 6 doses in 24 hours ondansetron 4 mg tablet,disintegrating 4 mg PO Q8H PRN (Reason: nausea and vomiting) Qty: 30 0RF Follow-up/Referrals: PHYSICIAN NOT ON STAFF,NONSTAFF [Primary Care Provider] Jeff Linton MD [Physician, Gastroenterology] Time of Disposition: 15:06
[2024-11-26] MEDS: SODIUM CHLORIDE 0.9% IV 1,000 ML 999 ML IV CONT (14:04)
[2024-11-26 14:14] LABS: BEDSIDEPREGUCG Negative (Negative)
[2024-11-26 14:19] LABS: Add Urine Microscopic? NO; Appearance Urine Clear (Clear); Glucose Urine UA Negative (Negative); Hematocrit 42.8 % (37.0-47.0); Hemoglobin 14.0 g/dL (12.0-15.0); Immature Granulocyte Percent A 0.3 % (0-0.5); Leukocyte Esterase Ur Negative LEU/UL (Negative); Lymphocytes Absolute Auto 3.13 K/mm3 (0.9-3.2); Mean Corpuscular HGB Conc 32.7 g/dl (32-36); Mean Corpuscular Hemoglobin 27.0 pg (26-34); Mean Corpuscular Volume 82.6 fl (80-100); Nitrate Urine Negative (Negative); Nucleated Red Blood Cells Absolute Auto 0.000 K/mm3 (0.0-0.012); Nucleated Red Blood Cells Perc 0.0 % (0.0-0.2); Platelet Count Result 475 k/mm3 (150-375); Red Blood Count 5.18 M/mm3 (4.2-5.4); Specific Grav Ur 1.025 (1.001-1.035); White Blood Count 11.0 K/mm3 (4.5-10.0)
[2024-11-26 14:29] LABS: Alanine Aminotransferase 19 U/L (6-35); Albumin Level 4.4 g/dL (3.5-5.1); Alkaline Phosphatase 104 U/L (38-126); Anion Gap 10 mmol/L (4-12); Aspartate Amino Transferase 27 U/L (14-36); Bilirubin,Total 0.6 mg/dL (0.2-1.3); Blood Urea Nitrogen 8 mg/dL (7-17); Calcium 9.6 mg/dL (8.4-10.2); Carbon Dioxide 24 mmol/L (22-30); Chloride 104 mmol/L (98-107); Estimated CRCL calculation 102 ml/min; Estimated Glomerular Filt Rate > 60; Glucose 89 mg/dL (65-110); Lipase 57 U/L (23-300); Potassium 4.1 mmol/L (3.4-5.0); Sodium 138 mmol/L (137-145); Total Protein 8.6 g/dL (6.3-8.2)
[2024-11-26 14:46] LABS: Beta HCG Quantitative < 2.39 mIU/ML
--- OUTSIDE RECORDS SUMMARY | 2024-11-26 15:24 | XMS_ITS | Clinical Summary ---
Author Organization [facility] Medical Office Building A Address [address] [place] [address] Care Team Providers Care Skate Shop Attendant Name Role Phone Johanna Batista MD Primary Care Provide r Eugenia Camarillo MEDICAL REIMBURSEMENT SPECIALIST Unavailable [phone] Wayne Fitzpatrick MD Unavailable Meera Gardner MD Unavailable [phone] Allergies No known active allergies Medications Fuentes [...] prn Assessment & Plan (05/18/2023 10:23 AM EMBEDDED NURSE): New concern Not at goal EMILY score [...] loss Assessment & Plan (05/18/2023 11:18 AM EMBEDDED NURSE): She was counseled on the importance of maintaining a healthy weight and the risks of obesity. Weight loss recommended. Encourage 150min/ week of exercise Encourage 1500 calories in a day for weight loss Encounter for wellness examination 05/17/2023 Assessment & Plan (06/08/2024 2:07 PM EMBEDDED NURSE): Labs reviewed and discussed Flu Pap smear follows with ob at [facility] td[facility] F/u in 1 year for annual Assessment & Plan (05/18/2023 10:15 AM EMBEDDED NURSE): Ordered CBC, cmp, lipid, hgb a1c, HIV, hep c, TSH w/ reflex to t4 gc chlamydia Flu given Pap smear follows with ob at [facility] F/u in 1 year for annual Encounters Date Type Department Care Team Description 10/15/2024 3:30 PM CDT Office Visit [facility] Medical Group Primary Care at [address] [address] Johanna Morales MD Pain of right hip (Primary Dx) 09/19/2024 Results Follow-Up [facility] Primary Care at [address] [address] Johanna Morales MD XR Chest PA Lateral 2 Views 09/17/2024 2:10 PM CDT - 09/17/2024 11:59 PM CDT Hospital Encounter [facility] 1 [place] [address] Cough, unspecified type; Bronchitis Discharge Disposition: Discharge to home or self care 09/17/2024 1:30 PM CDT Office Visit [facility] Medical [facility] Primary Care at [address] [address] Johanna Morales MD Cough, unspecified type (Primary [...] on file Legal Sex Female 6:21 PM EMBEDDED NURSE Gender Identity Female 07/01/2023 10:10 AM CDT [...] SMEAR WITH HPV Routine 03/21/2024 2:14 PM EMBEDDED NURSE HEPATITIS C ANTIBODY Routine 05/19/2023 12:50 PM EMBEDDED NURSE Preventative health care Need for hepatitis C screening test N. GONORRHOEAE/C. TRACHOMATIS AMPLIFICATION Routine 05/19/2023 12:50 PM EMBEDDED NURSE from Last 3 Months or Most Recently [...] Alvin Reed M.D. RW: [id number] Report ID: [id number] Reading Location: [id number] Procedure Note Alvin Reed MD - 09/19/2024 [...] Alvin Reed M.D. RW: [id number] Report ID: [id number] Reading Location: [id number] Johanna Batista MD IMG XR PROCEDURES Fin al Result * POC Influenza A/B, COVID-19 antigen (09/17/2024 1:30 PM CDT) Pathologist [facility] Influenza A Ag, POC Negative Negative [facility] Influenza B Ag, POC Negative Negative [facility] COVID-19 Ag POC Presumptive Negative Presumptive Negative, Invalid [facility] Nasal 09/17/2024 1:30 PM CDT Johanna Batista MD POINT OF CARE TEST OR DERABLES Final Result [facility] PCP [facility] [address] [facility] [address] [place] [address] * POCT respiratory syncytial virus (09/07/2024 1:30 PM CDT) Pathologist [facility] RSV Rapid Ag Negative Nasal 09/07/2024 1:30 PM CDT Johanna Batista MD POINT OF CARE TEST OR DERABLES Final Result * (ABNORMAL) HM PAP SMEAR WITH HPV (03/21/2024 2:14 PM EMBEDDED NURSE) Pathologist [facility] Scribed Pap Smear w/HPV Abnormal [facility] Olga PEREZ HEALTH MAINTENANCE Final Result * N. gonorrhoeae/C. trachomatis Amplification Urine (05/19/2023 12:50 PM EMBEDDED NURSE) Pathologist [facility] C. trachomatis Not Detected [facility] ([place]) Comment:Testing performed by : [facility], [address] [facility], [place]., [address] N. gonorrhoeae Not Detected [facility] ([place]) Comment: Interpretive Data This assay detects Chlamydia trachomatis and Neisseria gonorrhoeae by nucleic acid amplification testing (NAAT). This assay has been cleared by the [place] Food and Drug administration. The performance characteristics of this test have been verified by the [facility] Molecular Infectious Disease laboratory. The performance characteristics of this test have not been evaluated in individuals less than 14 years of age. Current Interpretive Data was last revised on 2023. Testing performed by: [facility], [address] [place] [address]., [address] Urine 05/19/2023 12:5 0 PM EMBEDDED NURSE 05/19/2023 8:06 PM EMBEDDED NURSE Johanna Batista MD LAB MICROBIOLOGY - GE NERAL ORDERABLES Final Result [facility] ([place] 1 [facility] [place] [address] * Hepatitis C antibody Blood (05/19/2023 12:50 PM EMBEDDED NURSE) Hep C Ab Nonreactive Nonreactive [facility] [...] last revised on 2019. Testing performed by: [facility], [address] [place] [address]., [address] Blood 05/19/2023 12:5 0 PM EMBEDDED NURSE 05/19/2023 9:29 PM EMBEDDED NURSE Narrative [facility] ([place]) - 05/19/2023 10:13 PM EMBEDDED NURSE fasting Johanna Batista MD LAB MICROBIOLOGY - GE NERAL ORDERABLES Final Result [facility] [place] 1 [facility] [address] [place] [id number] from Last 3 Months or Most Recently Relevant to Health Maintenance Insurance [facility] [employer] [place] Care Teams Skate Shop Attendant Relationship Specialty Start Date End Date Johanna Batista MD [address] [facility] [facility] [address] [place] [address] PCP - General Family Medicine 05/18/23 Eugenia Camarillo NP [address] [facility] [address] [facility] [address] [place] [address] Psychiatry 06/11/24 Wayne Fitzpatrick MD [address] [facility] [address] [place] [address] Medical Oncologist/Automatic Pilot Mechanic Hematology and Oncology 06/11/24 Meera Gardner MD [address] [facility] [address] [place] [address] Referring Physician Gynecology 06/11/24
[2024-11-26 16:03] LABS: Estimated CRCL calculation 94 ml/min; Estimated Glomerular Filt Rate > 60
== END 2024-11-26 15:28 | disposition home or self-care (01) ==
LOC: ANHED 15:09
PROVIDERS: Emergency Provider Nurse Practitioner Family
DX: K52.9 Noninfective gastroenteritis and colitis, unspecified (principal); K64.4 Residual hemorrhoidal skin tags; E66.01 Morbid (severe) obesity due to excess calories; Z68.36 Body mass index [BMI] 36.0-36.9, adult; Z79.3 Long term (current) use of hormonal contraceptives
CPT/HCPCS: 36415; 74177; 80053; 81003; 81025; 82565; 83690; 84702; 85025; 96360; 99284; J7030; Q9967

== ENCOUNTER 2024-12-22 22:11 | Emergency (ER) | payer OTHER, SELFPAY ==
--- OUTSIDE RECORDS SUMMARY | 2024-11-21 05:00 | XMS_ITS ---
Author Organization [employer] [facility] [employer] [facility] [employer] [place] ([address]) Address [address] [place] [address] Care Team Providers Care Communication Consultant Name Role Phone Johanna Batista Primary Care Provider U Eitan Xavier Unavailable [phone] Allergies No Known Allergies REASON FOR VISIT Chronic upper airway symptoms concerning for uncontrolled atopic disease, eczema, food related reflux symptoms Medications Medication SIG (Take, Route, Frequency, Duration) Notes Start Date End Date Status Escitalopram Oxalate 20 MG 1 tablet Oral ly Once a day Active traZODone HCl Active Fexofenadine HCl 180 MG 1 tablet Swallow whole with water; do not take with fruit juices. Orally Once a day in AM; Duration: 30 days 11/21/2024 Active Cetirizine HCl 10 MG 1 tablet Orally Onc e a day in the evening; Duration: 30 days 11/21/2024 Active Fuentes 04/23 1-20 MG-MCG 1 tablet Orally O nce a day Active Mometasone Furoate 0.1 % 1 application t o affected area as needed Externally twice a day; Duration: 30 days 11/21/2024 Active Flonase Allergy Relief 50 MCG/ACT 2 sprays (1 spray in each nostril) Nasally Twice a day; Duration: 30 days 11/21/2024 Active Social History Tobacco Use: Social History Observation Description Date Details (start date - stop date) Current Smoker NA - NA Sex Assigned At : Social History Observation Description Sex Assigned At Female Tobacco Control (Standard) Question Answer Notes Tobacco use: Current smoker Are you interested in quitting? Thinking about q uitting Additional Findings: Tobacco user e-cigarette Problems Problem Type SNOMED Code ICD Code Onset Dates Problem Status W/U Status Risk Notes Problem Allergic rhinitis caused by pollen (disorder) (04779077) Allergic rhinitis due to pollen (J30.1) Active confirmed Problem Allergic rhinitis caused by animal hair and dander (354219370963475) Allergic rhinitis due to animal (cat) (dog) hair and dander (J30.81) Active confirmed Problem Allergic rhinitis (91411879) Other allergic rhinitis (J30.89) Active confirmed Problem Chronic allergic conjunctivitis (73484678) Other chronic allergic conjunctivitis (H10.45) Active confirmed Problem Chronic rhinitis (98982491) Chronic rhinitis (J31.0) Active confirmed Problem Uncomplicated moderate persistent asthma (087216937) Moderate persistent asthma, uncomplicated (J45.40) Active confirmed Problem Uncomplicated mild persistent asthma (277930627) Mild persistent asthma, uncomplicated (J45.30) Active confirmed Problem Uncomplicated severe persistent asthma (057262731) Severe persistent asthma, uncomplicated (J45.50) Active confirmed Problem Atopic dermatitis (24227867) Atopic dermatitis, unspecified (L20.9) Active confirmed Problem Gastro-esophageal reflux disease without esophagitis (236604603) Gastro-esophageal reflux disease without esophagitis (K21.9) Active confirmed Vital Signs Blood pressure systolic 118 mm Hg 11/22/19 25 Blood pressure diastolic 81 mm Hg 025 Height 63 in 11/21/2024 Weight 210.6 lbs 11/21/2024 BMI 37.3 kg/m2 11/21/2024 Oximetry 100 % 11/21/2024 Encounters Encounter Location Date Provider Diagnosis [facility] [address] [place] [address] 11/21/2024 Eitan Quezada Allergic rhinitis du e to pollen J30.1 ; Allergic rhinitis due to animal (cat) (dog) hair and dander J30.81 ; Other chronic allergic conjunctivitis H10.45 ; Atopic dermatitis, unspecified L20.9 and Gastro-esophageal reflux disease without esophagitis K21.9 Assessments Encounter Date Diagnosis (ICD Code) Assessment Notes Treatment Notes Treatment Clinical Notes Section Notes 11/21/2024 Allergic rhinitis due to pollen (ICD-10 - J30.1) Given the history and symptoms, skin testing was performed to common aeroallergens to determine atopic status. clearly suffers from atopic disease based upon our skin testing and clinical history. Accordingly, we have introduced a new, aggressive medication regimen, discussed nasal washes and allergy-specific avoidance measures. We also discussed adjunctive therapies including subcutaneous, specific allergen immunotherapy as relates to the treatment and prevention of atopic disease. She we will proceed with immunotherapy, conventional, weekly injections. We discussed Risks: bleeding, infection, allergic reaction, anaphylaxis; Benefits: reduced need for medications, improved symptoms, disease modification. Alternatives: watch/wait, change medication regimen, improve allergy avoidance measures. Follow-up in 2 month for interval evaluation and management 11/21/2024 Allergic rhinitis due to animal (cat) (dog) hair and dander (ICD-10 - J30.81) Follow allergen avoidance, meds and consider SCIT as an adjunctive treatment to current regimen 11/21/2024 Other chronic allergic conjunctivitis (ICD-10 - H10.45) Given ocular signs and symptoms I encouraged allergy avoidance measures and meds as above. If symptoms persist, consider adding additional medications including intraocular antihistamine/mas t cell stabilizer, PRN and consider SCIT as an adjunctive measure 11/21/2024 Atopic dermatitis, unspecified (ICD-10 - L20.9) 11/21/2024 Gastro-esophageal reflux disease without esophagitis (ICD-10 - K21.9) 11/21/2024 Other Follow allergen avoidance, meds and consider SCIT as an adjunctive treatment to current regimen Plan Of Treatment Medication Medication Name Sig Start Date Stop Date Notes Fexofenadine HCl 180 MG 1 tablet Swallow whole with water; do not take with fruit juices. Orally Once a day in AM; Duration: 30 days 11/21/2024 Cetirizine HCl 10 MG 1 tablet Orally Onc e a day in the evening; Duration: 30 days 11/21/2024 Mometasone Furoate 0.1 % 1 application t o affected area as needed Externally twice a day; Duration: 30 days 11/21/2024 Flonase Allergy Relief 50 MCG/ACT 2 sprays (1 spray in each nostril) Nasally Twice a day; Duration: 30 days 11/21/2024 Treatment Notes Assessment Notes Allergic rhinitis due to pollen Given th e history and symptoms, skin testing was performed to common aeroallergens to determine atopic status. clearly suffers from atopic disease based upon our skin testing and clinical history. Accordingly, we have introduced a new, aggressive medication regimen, discussed nasal washes and allergy-specific avoidance measures. We also discussed adjunctive therapies including subcutaneous, specific allergen immunotherapy as relates to the treatment and prevention of atopic disease. She we will proceed with immunotherapy, conventional, weekly injections. We discussed Risks: bleeding, infection, allergic reaction, anaphylaxis; Benefits: reduced need for medications, improved symptoms, disease modification. Alternatives: watch/wait, change medication regimen, improve allergy avoidance measures. Follow-up in 2 month for interval evaluation and management Allergic rhinitis due to ani mal (cat) (dog) hair and dander Follow allergen avoidance, meds and consider SCIT as an adjunctive treatment to current regimen Other chronic allergic conjunctivitis Gi reynaldo ocular signs and symptoms I encouraged allergy avoidance measures and meds as above. If symptoms persist, consider adding additional medications including intraocular antihistamine/mast cell stabilizer, PRN and consider SCIT as an adjunctive measure Other Follow allergen avoi dance, meds and consider SCIT as an adjunctive treatment to current regimen Next Appt Details Follow Up: 8 Weeks, Reason: Evaluation and Management and to be sure immunotherapy was initiated and being tolerated Provider Name:Destin KanElvin Farris , 01/02/2025 10:00:00 AM, [address] [facility], [address] [place] [address], [id number], Provider Name:Eitan Quezada, 01/23/2025 01:00:00 PM, [address] [facility], [address], [place], [address], Procedure Notes * Category Sub-Category Detail Notes Skin Testing Number of Skin Tests Performed (including controls): Aeroallergen: Yes Epicutaneous: 72 Food: Yes Epicutaneous: 2 Hymenoptera: Yes Epicutaneous: 1 Total (Epicutaneous): 75 Epicutaneous (New) skin testing was per formed to common aeroallergens, Milk, Wheat, Rabbit, positive and negative controls responded appropriately, revealing positive reactions to, [place], Beech, Birch, Anderson, [place] (Eastern), Elm, Gardner (Shagbark), Maple, Labolt Mix, Orlando Mix, Orlando (Red), Orlando (White), [place] (Yellow), Sweet Gum, [place] (Moroccan), [place] (Black), Bermuda, Brome, Fescue, Red/Landers, Mike, K. Blue (Lisa), Orchard, Redtop, Goldsmith, Elton, Cocklebur, Dock, Red (Sheep Wink), Dock, Yellow, Hemp, Meron Water, Kochia, Milian Elder (Rough), Mugwort, Plantain, Icelandic, Plantain, Icelandic, Cat Hair, Cat Pelt, UF Dog, DM f, DM p, Ragweed Mix, [place]er Thistle, Mineral, Alternaria, Dayna Albicans, Milk, Wheat Progress Notes * Aleta FOSSaDOB:[birth year] (24 yo F)Acc No.[id number]:11/21/2024 Progress Notes Patient: Richa MEYER Provider: Yanely Quezada :2000 A ge:23 Y S ex:Female Date:11/21/2024 Address:[address] [place], [place] [id number] Pcp:Johanna Batista Subjective: * Chief Complaints: * 1 . Chronic upper airway symptoms concerning for uncontrolled atopic disease. 2. Eczema. 3. Food related reflux symptoms. * HPI: * Headache: Intake: Headache Onset W hen did your current headache problem begin??More than 1 year ago W as there a precipitating event to the current headache problem? N one Intake: Headache Characteristics W hich of the following characteristics do you associate with your headache or migraine? Wake up headaches (headache already developed upon awakening),Can be unilateral or bilateral,Orbital (located around the eyes(s)),Frontal (located in forehead region),Temporal (located in samaritan region),Occipital (located in back of head region),Squeezing or pressure pain,Throbbing or pulsating pain,Sharp or stabbing pain,Headache duration > 4 hours to all day untreated or unsuccessfully treated,Frequency 4 to 14 days/month A lleviating factors D ark room A ggravating factors L ight/bright light,Noise/loud noise,Movement or physical activity Intake: Headache-associated Aura or Other Symptoms G astrointestinal symptoms associated with headaches D ecreased appetite S ensory symptoms associated with headaches?Scalp tenderness,Noise sensitivity,Ringing in ears V isual symptoms associated with headaches?Light sensitivity V estibular symptoms associated with headaches?Dizziness/unsteadiness,Lightheadedness,Sensation of movement (vertigo) M ental/Emotional symptoms associated with headaches P oor concentration,Restlessness,Mood change V asomotor symptoms associated with headaches?Stuffy nose,Runny nose G eneral symptoms associated with headaches?Fatigue or lack of energy,Neck or shoulder pain,Excessive yawning Intake: Headache Triggers W hat do you perceive as triggers for your headache or migraine? S tress,Weather changes (barometric pressure change),Hormone changes (e.g. menstrual cycle),Too much or too little caffeine,Seasonal allergies Intake: Headache Previous Testing H ave you had any previous testing related to your headache or migraine N o Intake: Headache Associated Conditions D o you have concerns about seasonal or year-round allergies? Y es D o you have concerns about sleep or sleep quality? N o D o you have concerns about your mood or do you have a history of depression? N o D o you have neck pain or stiffness? N o D o you have a history of prior concussion??No D o you have concerns about hormone imbalances? N o D o you have sinus problems? Y es * Allergic Rhinoconjunctivitis: Allergic rhinitis D o you have or suspect you have allergic rhinitis (itchy eyes, sneezing, congestion or runny nose triggered by allergies)? Y es W hich areas and what symptoms are involved? Please fill out each section below as needed. e yes,ears,cough,nose,sore throat,headache,sinuses W hich of the following trigger your allergic rhinitis symptoms? e xercise,tree pollen,grass pollen,weed pollen,cold air,sinus infections,house cleaning (dusting or vacuuming),occupational exposures,mold,damp or musty areas,colds or flu,perfumes,hair spray,air pollution,spring (season),summer (season),fall (season),cats,rabbits D o you have any of the following other symptoms associated with your allergic rhinitis? e xcessive daytime sleepiness,restless sleep,manager secondary headaches Eyes S pecific affected area: b oth (bilateral) O ccurence? i ntermittent H ow frequent? i nfrequent W hen does this mostly occur? a nytime S ymptoms: i tching,watering,redness,sensitive to light,swelling of the lids Ears S pecific affected area: b oth (bilateral) H ow often? i ntermittent S ymptoms: p lugged,ache,infections Nose S pecific area affected: b oth (bilateral) O ccurence? i ntermittent H ow frequent? d aily W hen does this mostly occur? a nytime S ymptoms? i tching,congestion,sneezing jags,postnasal drainage,sinus infection,awaken very congested in the a.m. Sinuses D o you have sinus pain? Y es H ave you lost sense of taste? N o W here? c enter of forehead above eyes (frontal),over left cheek (maxillary),over right cheek (maxillary,over nasal bridge between the eyes (ethmoid) H ave you been treated with antibiotics for sinusitis? Y es W hich antibiotics? a moxicillin H ow often in the past year? o nce W hat is the longest duration of antibiotics prescribed and completed? 6 -10 days H ave any of the following treatments improved your sinus symptoms? n o treatment to date H ave you ever had a CT scan or xray? Y es W here? O ther hospital W hen? 0 09/2024 H ave you ever undergone sinus surgery? N o Sore Throat O ccurence? i ntermittent H ow frequent? i nfrequent W hen does this usually occur? a nytime E ffective treatments? t hroat lozenges Cough F requency: d aily I s cough more bothersome during night? Y es I s phlegm produced? Y es S putum color? c lear,yellow,green I s significant phlegm produced during the night? N o E ffective treatments? o ral steroids (Prednisone or Medrol) Headache S pecific area(s) affected? o moni left cheek (maxillary),over right cheeck (maxillary),back area of the head,base of neck,left side of head (samaritan),right side of head (samaritan) O ccurence? i ntermittent H ow frequent? i nfrequent W hat time of day does this mostly occur? a nytime A ccompanying symptoms? p honophobia (bothered by sound) * Asthma: Cough D o you have a recurrent cough? Y es A pproximately, when did your cough start??08/11/2024 H ow often do you cough? d aily W hat triggers your cough? e xercise,tree pollen,grass pollen,weed pollen,cold air,sinus infections,emotions or stress,laughter,house dusting or vacuuming,weather changes,occupational exposures,perfumes,colds or flu,spring (season), (season),fall (season),winter (season),air conditioning W hich treatments have been effective for your cough? o ral steroid (Prednisone or Medrol) I s your cough more bothersome at night? Y es I s sputum produced? Y es W hat color is your sputum? c lear,yellow,green I s there significant phlegm production during the night? N o Wheezing D o you have recurrent wheezing or a history of wheezing sometime in your life? Y es D id you have symptoms of asthma as a child??Yes D id you have frequent respiratory infections as a child? Y es W ere you ever hospitalized in the first 12 months of life for a respiratory infection in childhood? N o D o you still have wheezing? Y es H ow often do you get it? 2 -5 times per year I s your wheezing changing? s jada L ist months when wheezing is worse: J anuary,June,July,August,September,October,November,December,January,March W hat triggers your wheezing? e xercise,cold air,sinus infections,laughter,weather changes,winter (season) D o you take an inhaled, rescue bronchodilator medication? N o H ave you taken oral steroids (Prednisone or Medrol) in the past? Y es H ow many times in the last year? 1 Nocturnal Symptoms D o you have any of the following respiratory symptoms at night? c oughing that interrupts sleep Physical Performance H ow many flights of stairs can you climb without stopping? (Enter 99 for unlimited) 3 I f there are limitations, what symptoms limit further activity? c ough,shortness of breath D o you have any of the following additional problems? e xcessive daytime sleepiness,restless sleep Effective treatments for cough and or wheezing P rescription cough medicine: T enrique Birch escue inhaler or nebulizer treatment: A lbuterol O ral steroid: P rednisone * Atopic dermatitis: Atopic dermatitis - Eczema D o you have chronic or recurrent atopic dermatitis or eczema? Y es W hen did the eczema start? b irth B nadege parts involved? u pper arms,lower arms,outer elbows,elbow creases (AC fossa),scalp,face,neck,front of trunk,legs,backs of knees (popliteal fossa),fingers,hands,ankles,wrists,feet H ow long do episodes of your eczema last??continuous H ow frequently do you have symptoms? d aily W hat time(s) of the day does the rash occur??any time (no predilection) A re there any times of the year when your eczema worsens (seasonal exacerbation)? s ummer,fall,winter P erceived triggers or provocateurs of eczema??showering,bathing,temperature changes (change to cold),grass pollen D o symptoms change when you are away from home? u nchanged D o any of the following physical stimuli initiate or worse your rash? c old water,warm water,hot water,cold wind or weather A s the eczema resolves, are there skin changes? s caling or flaking,hyperpigmentation (darker skin color) * Prior Evaluations and Treatments: Prior evaluations and treatments H ave you been evaluated by another physician for allergic rhinitis, cough, wheezing, asthma, urticaria, angioedema, atopic dermatitis or eczema??Yes W hat type(s) of of provider(s)? P [facility] care physician H ave you undergone testing for any aforementioned conditions or symptoms? N o H ave you ever been on allergy immunotherapy??No H ave you ever passed out during a blood draw, shot or vaccination? N o Last dose of antihistamine: c etirizine (Zyrtec) 0 10/05/2024 n charlie antihistamine (azelastine, olopatadine, azelastine, Astepro, Patanase) 0 10/20/2024 H as your antihistamine been effective in controlling any of your symptoms? N o D o you take any other psychiatric medication??Yes N jada: t razadone (Desyrel or Deprax - also goes by many other names),Other L ast dose? 0 11/12/2024 * Infections: Vaccination History F or children, are childhood vaccines up to date: Y es H ave you ever had a flu shot? Y es D ate of last flu shot? 0 05/18/2023 H ave you ever had a pneumococcal vaccine ([id number]-Trnvufsdf)? Y es H ave you ever had a tetanus vaccine (NDvo-Xkyy-Nc)? Y es D ate of last tetanus vaccine? 0 11/27/2013 D id it contain pertussis as well? Y es Ear Infections D o you have frequent ear infections? Y es H ow many episodes over the past 12 months??5 D id you ever have ear tubes placed to help alleviate recurrent ear infections? N o D id you have exposure to passive cigarette smoke in infancy? Y es H ave you been seen by an wafer polisher or crab steamer to evaluate your immune system function for recurrent ear infections? N o Sinusitis (Sinus infections) D o you have frequent episodes of sinusitis??Yes H ow many episodes over the past 12 months??5 H ave you been treated with antibiotics for sinusitis? Y es H ow many courses of antibiotics for sinusitis in the past year? 3 -5 times W hat is the longest course of antibiotics you have taken for sinusitis? 1 0 days H ave you been seen by an wafer polisher or crab steamer to evaluate your immune system function for recurrent sinus infections? N o Sinus Symptoms and Surgery D o you have chronic or recurrent sinus symptoms? Y es D o you have a history of nasal polyps? N o D o you have sinus pain? Y es D o you have a loss of sense of taste? N o H ave you used any of the following treatments for your sinuses? n charlie spray decongestants,nasal salt water irrigations,oral antihistamines,oral decongestants H ave you ever had a sinus CT or X-Ray? N o H ave your ever undergone sinus surgery? N o Bronchitis History D o you get frequent bronchitis? N o Pneumonia History H ave you ever had pneumonia or recurrent pneumonia? Y es H ow many episodes in your entire life? 2 H ave you been treated with antibiotics for pneumonia? Y es W ere antibiotics oral, IV or both? o ral H ave you been hospitalized for treatment??No H ave you been seen by an wafer polisher or crab steamer to evaluate your immune system function for recurrent pneumonia N o Skin and Other Infections D o you get frequent skin infections (cellulitis)? N o D o you get any other frequent infections??No * Food allergy: Food Allergy D o you currently have or have you ever had any proven or suspected food allergies? Y es W hat food(s)? m ilk W hat symptoms do you experience when foods are ingested? n ausea,bloating,diarrhea H ow quickly do symptoms come on after food ingestion? w ithin 20 minutes H ave you ever been hospitalized or treated urgently for symptoms of a severe allergic reaction (anaphylaxis)? N o D o you carry self-injectable epinephrine for your prior reaction(s)? N o H ave you previously seen an wafer polisher for evaluation of possible food allergy? N o * Medication allergy: Medication Allergy D o you feel you are allergic to any medications? Y es W hat type of medication? a ntibiotic (Penicillin or Amoxicillin or other antimicrobial) H ow was the medication administered? o ral W hat was the medication administered for??ear infection,sinus infection I f antibiotic, what type: p enicillin-derivative H ave you been evaluated by an wafer polisher previously for possible drug allergy? N o * Introduction: HPI: Shante joshua is a pleasant 23-year-old female referred by her mother to our clinic as her mother is a patient. Her primary care physician is Flaquita Schroeder MD. she presents for evaluation of chronic severe allergic rhinoconjunctivitis, food related GERD symptoms, mild atopic dermatitis. She presents describing a long history of classic severe allergic rhinitis symptoms including nasal congestion, rhinorrhea, sneezing paroxysms, and red itchy irritated eyes the symptoms occur on a perennial basis and have been present for many years. She has tried multiple medications including Zyrtec, Ora, Benadryl and nasal Flonase without significant improvement. She presents for further evaluation and more aggressive recommendations. Her past history is significant for mild atopic dermatitis mainly involving her lower extremities with scaly dry lesions diagnosed as eczema by others in the past. She is currently only using a topical moisturizing lotion. Her past medical history is otherwise unremarkable. Environmentally she lives in a home where there is carpet, 1 indoor cat, 2 indoor dogs, 1 rabbit and she also vapes.. * ROS: A LLERGY: runny nose Y es. s cratchy throat Y es. i tchy eyes Y es. e ar fullness Y es. s inus congestion Y es. P ositive p er the HPI and history, otherwise unremarkable. S PECIAL SENSES: Positve for n one. i tching in ears Y es. r inging in ears Y es. d ry eyes Y es. i tching eyes Y es. c onjunctivitis Y es. e ar infections Y es. C ONSTITUTIONAL: weight gain Y es. l oss of appetite Y es. f ever Y es. w eakness Y es. f atigue Y es. n ight sweats Y es. P ositive for n one. E NT: cold Y es. c ough Y es. c hange in voice Y es. s ore throat Y es. r inging in ears Y es. s inus pain Y es. P ositive p er the HPI and history, otherwise unremarkable. R ESPIRATORY: shortness of breath Y es. c hest congestion Y es.?cough Y es. P ositive p er the HPI and history, otherwise unremakable. ? O PHTHALMOLOGY: eye irritation Y es. d rainage from eyes Y es. P ositive for p er the HPI and history, otherwise unremarkable. i tching Y es. s ensitivity to light Y es. w atering Y es. s welling of the eyelids Y es. r edness Y es. E NDOCRINOLOGY: fatigue Y es. s leep disturbance Y es. c old intolerance Y es. h eat intolerance Y es. P ositive for n one. C ARDIOLOGY: shortness of breath Y es. P ositive for n one. G ASTROENTEROLOGY: nausea Y es. v omiting Y es. d iarrhea Y es. i ndigestion Y es. P ositive for n one. U ROLOGY: Positive for n one. D ERMATOLOGY: rash Y es. m ole Y es. d ry or sensitive skin?Yes. a cne Y es. P ositive for p er the HPI and history, otherwise unremakable.? N EUROLOGY: headache Y es. i nsomnia Y es. P ositive for?none. H EMATOLOGY/LYMPH: Positive for n one. M USCULOSKELETAL: joint pain Y es. l eg cramps Y es. j oint stiffness Y es. P ositive for n one. P SYCHOLOGY: high stress level Y es. s leep disturbances Y es.?mental or physical abuse Y es. a nxiety Y es. P ositive for n one. ? A ll other review of systems per the HPI and history, otherwise unremarkable. * Medical History: A nxiety. * Surgical History: D enies Past Surgical History. * Hospitalization/Major Diagno stic Procedure: D enies Past Hospitalization. * Family History: F ather: , Yes. M other: alive, Yes. P aternal Grand Father: Yes. P aternal Grand Mother: Yes. M aternal Grand Father: Yes. M aternal Grand Mother: Yes. P aternal uncle: Yes. M aternal aunt: Yes. S iblings: Yes. C hildren: No. * Social History: C affeine: Yes. M arital Status What is your marital status? s korina A lcohol Screening Do you ever drink alcoholic beverages? Y es Number of drinks per occasion: 2 Frequency? E very other month S moking Have you ever smoked tobacco: n ever smoked Additional Findings: Tobacco User T rivial cigarette smoker (less than one cigarette/day) Are you a : c urrent smoker R ecreational drug use Have you ever used recreational drugs? Y es What kind of drugs? m arijuana D etails on consumption of certain products? Do you regularly consume products with aspartame; Equal or NutraSweet? N o Do you regularly consume products with artificial coloring??Yes Have you ever noticed worsening of your rash with these food items? N o E xercise What kind(s) of exercise do you perform regularly? w alking How often do you perform this exercise? d aily A re any of the following personal care products containing fragrance, dye or preservatives used regularly? Shampoo: Y es Conditioner: Y es Soap: Y es Laundry Detergent: Y es Fabric Softener: N o Deodorant: Y es Perfume, cologne, after shave: Y es Air freshners or other scented products: Y es Hair coloring dyes or rinses: N o O ccupation Are you currenly employed? 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 N o How much work have you missed due to breathing difficulty within the past year? 1 week Please describe the effect of your illness on your job p oor concentration,poor performance,decreased enjoyment,loss of work,loss of income Do you have any pending or planned legal action against your current or former employer which pertains to your medical illness? N o Do you anticipate that your evaluation will be used in any legal action against your current employer or former employer? N o Have you had any job with high exposure to fumes, chemicals, dust or other noxious substances? N o Are you currently a student? Y es How much school have you missed due to breathing difficulty within the past year? 1 week Please describe the effect of your illness on your school performance: p oor concentration,poor performance,lack of enjoyment E nvironmental History Living environment: p rivate home,apartment,with pets,with relatives Where is the home located? r [place],near any major factories or industries,suburb Age of home: 4 7 How long have you lived there? 5 years or more How many people live in the home? 4 H ome description Basement: Y es Any water damage in basement? N o Smokers in the home? N o Smokers outside the home? N o Air Conditioning? Y es Central Air? Y es Forced air heating? N o Fireplace? Y es Used how often? w inter months only Wood burning stove? N o Do you vacuum the home? Y es Air purification systems? N o Pillow and mattress dust-proof encasings? N o Do you use a humidifier? N o Do you own any pets? Y es What kind(s)? (click all that apply) c ats,dog,fish,rabbit Where do your pets sleep? a nywhere in the house Fabric softeners used? N o Plants in the home? Y es How many? 3 Where are they kept? k itchen,other room in home Is there carpeting in your bedroom? Y es Age of carpet? 1 0 Do you have ardh-th-tesb carpeting? Y es What is the age of your carpeting? 1 0 What is the age of your mattress (years)? 1 0 What material(s) are used to manufacture your bedding and pillow? s ynthetic What is the age of your pillow (years)? 3 What material are your bedding items made of? s ynthetic Do you sleep with quilts or blankets or a duvet? Y es What material? s ynthetic How many cats? 1 How many dogs? 2 How many fish? 1 How many rabbits? 1 T obacco Control (Standard) Tobacco use: C urrent smoker Are you interested in quitting? T hinking about quitting Additional Findings: Tobacco user e -cigarette * Medications: T aking Fuentes 04/23 1-20 MG-MCG Tablet 1 tablet Orally Once a day , Taking traZODone HCl , Taking Escitalopram Oxalate 20 MG Tablet 1 tablet Orally Once a day , Medication List reviewed and reconciled with the patient * Allergies: N .K.D.A. Objective: * Vitals: B P:118/81mm Hg, HR:94/min, Pulse Oximetry:100%, Ht: 63 in, Wt: 210.6 lbs, BMI:37.3Index. * Examination: G eneral examination: General appearance: p leasant, well-developed, well-nourished. HEENT: p upils equal, round, and reactive to light and accommodation, conjunctiva are injected bilaterally, no tenderness to palpation of the sinuses, TM's without evidence of acute infection, turbinates 4+ swollen and pale inferiorly bilaterally, clear rhinorrhea is present, no polyps noted, no septal perforation, posterior oropharynx is erythematous and cobblestoning is present, erythema on pharyngeal wall, no exudates, no tongue swelling, and uvula is midline. Oral cavity: n ormal, no lesions. Neck, thyroid : s upple, non-tender, no anterior cervical lymphadenopathy. Breasts : n ot performed. Heart: R RR, S1-S2, no murmurs, no rubs, no gallops. Lungs: c lear to auscultation and percussion in all lung wheeler, no wheezes or crackles. Neurologic exam: u nremarkable. Skin: M ild eczematoid eruption on her left lateral ankle and left thigh with dry scaly skin but in general cutaneous examination was normal. There was no evidence of dermatographia some urticaria present. Dermatographism, urticaria, angioedema. Peripheral pulses: n ormal (2+) bilaterally.? Back: n ormal. Extremities: n ormal ROM, no clubbing, no cyanosis, no edema. Genitalia: n ot performed. Assessment: * Assessment: 1. A llergic rhinitis due to pollen - J30.1 (Primary) 2 . A llergic rhinitis due to animal (cat) (dog) hair and dander - J30.81 3 . O ther chronic allergic conjunctivitis - H10.45 4 . A topic dermatitis, unspecified - L20.9 5. G celestine-esophageal reflux disease without esophagitis - K21.9 Plan: * Treatment: 2. A llergic rhinitis due to animal (cat) (dog) hair and dander Notes: Follow allergen avoidance, meds and consider SCIT as an adjunctive treatment to current regimen 3. O ther chronic allergic conjunctivitis Notes: Given ocular signs and symptoms I encouraged allergy avoidance measures and meds as above. If symptoms persist, consider adding additional medications including intraocular antihistamine/mast cell stabilizer, PRN and consider SCIT as an adjunctive measure 4. O thers Notes: Follow allergen avoidance, meds and consider SCIT as an adjunctive treatment to current regimen * Procedures: S kin Testing: Number of Skin Tests Performed (including controls): A eroallergen Y es E picutaneous 7 2 F ood Y es E picutaneous 2 H ymenoptera Y es E picutaneous 1 T otal (Epicutaneous) 7 5 Epicutaneous (New) s kin testing was performed to common aeroallergens, Milk, Wheat, Rabbit, positive and negative controls responded appropriately, revealing positive reactions to, Jarvis, Beech, Birch, Anderson, [place] (Eastern), Elm, [place] (Shagbark), Maple, [place]olt Mix, Orlando Mix, [place] (Red), [place] (White), [place] (Yellow), Sweet Gum, [place] (Moroccan), [place] (Black), Bermuda, Brome, Fescue, Red/Landers, Mike, K. Blue (Lisa), Orchard, Redtop, Goldsmith, Elton, Cocklebur, Dock, Red (Sheep Wink), Dock, Yellow, Hemp, Meron Water, Kochia, Milian Elder (Rough), Mugwort, Plantain, Icelandic, Plantain, Icelandic, Cat Hair, Cat Pelt, UF Dog, DM f, DM p, Ragweed Mix, [place]er Thistle, Mineral, Alternaria, Dayna Albicans, Milk, Wheat. * Procedure Codes: 9 5004 PRICK TESTS, Units: 75.00 , 00370 MEASURE BLOOD OXYGEN LEVEL, 57950 SELF- MGMT EDUC & TRAIN, 1 PT, 88471 PT-FOCUSED HLTH RISK ASSMT, G8427 DOC MEDS VERIFIED W/PT OR RE * Preventive Medicine: Counseling: M edication instruction: W atch for side effects of prescribed medications, Nasal steroid/antihistamine instruction: avoid septum. E ducation: G ENERAL EDUCATION: Our staff spent an additional 30 minutes in direct contact with the patient educating them on their current diagnoses and proper treatment and prevention of symptoms and the proper use of medications. E ducation 2: A RC EDUCATION: Our staff discussed the appropriate allergen avoidance measures and medication utilization including upper airway hygiene with daily nasal washes given the patient's clinical status and diagnoses. SCIT EDUCATION: Discussed allergy immunotherapy including the relative risks, benefits and alternatives to this treatment as an adjunctive measure to current therapy, Allergy Immunotherapy: Risks: bleeding, infection, allergic reaction, anaphylaxis = severe allergic reaction that can cause ; Benefits: reduced need for medications, improved symptoms, disease modification. Alternatives: watch/wait, change medication regimen, improve allergy avoidance measures, Our staff discussed the warning signs of anaphylaxis and the indications to use self-injectable epinephrine and seek urgent or emergent care. P atient education material sent to portal? Y es * Follow Up: 8 Weeks (Reason: Evaluation and Management and to be sure immunotherapy was initiated and being tolerated) * Billing Information: * Visit Code: 96568 Office Visit, New Pt., Level 4. Modifiers: 25 * Procedure Codes: 48949 PRICK TESTS. Units: 75.00. 39663 MEASURE BLOOD OXYGEN LEVEL. 86854 SELF-MGMT EDUC & TRAIN, 1 PT. 93971 PT-FOCUSED HLTH RISK ASSMT. G8427 DOC MEDS VERIFIED W/PT OR RE. * Electronic signature of MD Sen ph D on 12/22/2024 at 10:13 PM CDT Sign off status: Pending * Provider: Yanely Quezada Date: 0 11/21/2024 Generated for Melissa Angel on: 0 12/22/2024 10:13 PM CDT History and Physical Notes * HPI (History of Present Illness) Category Sub-Category Detail Notes Category Not es *Introduction HPI: Richa is a pleasant 23-year-old female referred by her mother to our clinic as her mother is a patient. Her primary care physician is Flaquita Schroeder MD. she presents for evaluation of chronic severe allergic rhinoconjunctivitis, food related GERD symptoms, mild atopic dermatitis. She presents describing a long history of classic severe allergic rhinitis symptoms including nasal congestion, rhinorrhea, sneezing paroxysms, and red itchy irritated eyes the symptoms occur on a perennial basis and have been present for many years. She has tried multiple medications including Zyrtec, Ora, Benadryl and nasal Flonase without significant improvement. She presents for further evaluation and more aggressive recommendations. Her past history is significant for mild atopic dermatitis mainly involving her lower extremities with scaly dry lesions diagnosed as eczema by others in the past. She is currently only using a topical moisturizing lotion. Her past medical history is otherwise unremarkable. Environmentally she lives in a home where there is carpet, 1 indoor cat, 2 indoor dogs, 1 rabbit and she also vapes. *Allergic Rhinoconjunctivitis Eyes Specific affected area:: both (bilateral) Occurence?: intermittent How frequent?: infrequent When does this mostly occur?: anytime Symptoms:: itching,watering,redness,sens itive to light,swelling of the lids Ears Specific affected area:: both (b ilateral) How often?: intermittent Symptoms:: plugged,ache,infections Cough Frequency:: daily Is cough more bothersome during night?: Yes Is phlegm produced?: Yes Sputum color?: clear,yellow,green Is significant phlegm produced during the night?: No Effective treatments?: oral steroids (Pr ednisone or Medrol) Nose Specific area affected:: both (b ilateral) Occurence?: intermittent How frequent?: daily When does this mostly occur?: anytime Symptoms?: itching,congestio n,sneezing jags,postnasal drainage,sinus infection,awaken very congested in the a.m. Sore Throat Occurence?: intermittent How frequent?: infrequent When does this usually occur?: anytime Effective treatments?: throat lozenges Headache Specific area(s) aff ected?: over left cheek (maxillary),over right cheeck (maxillary),back area of the head,base of neck,left side of head (samaritan),right side of head (samaritan) Occurence?: intermittent How frequent?: infrequent What time of day does this mostly occur? : anytime Accompanying symptoms?: phonophobia (bot hered by sound) Sinuses Do you have sinus pain?: Yes Have you lost sense of taste?: No Where?: center of forehead above eyes (frontal),over left cheek (maxillary),over right cheek (maxillary,over nasal bridge between the eyes (ethmoid) Have you been treated with antibiotics f or sinusitis?: Yes Which antibiotics?: amoxicillin How often in the past year?: once What is the longest duration of antibiotics prescribed and completed?: 6-10 days Have any of the following tr eatments improved your sinus symptoms?: no treatment to date Have you ever had a CT scan or xray?: Ye s Where?: Other hospital When?: 09/2024 Have you ever undergone sinus surgery?: No Allergic rhinitis Do you have or suspe ct you have allergic rhinitis (itchy eyes, sneezing, congestion or runny nose triggered by allergies)?: Yes Which areas and what symptoms are involved? Please fill out each section below as needed.: eyes,ears,cough,nose,sore throat,headache,sinuses Which of the following trigger your allergic rhinitis symptoms?: exercise,tree pollen,grass pollen,weed pollen,cold air,sinus infections,house cleaning (dusting or vacuuming),occupational exposures,mold,damp or musty areas,colds or flu,perfumes,hair spray,air pollution,spring (season),summer (season),fall (season),cats,rabbits Do you have any of the following other symptoms associated with your allergic rhinitis?: excessive daytime sleepiness,restless sleep,manager secondary headaches *Asthma Cough Do you have a recurrent cough?: Yes Approximately, when did your cough start?: 08/11/2024 How often do you cough?: daily What triggers your cough?: exercise,tree pollen,grass pollen,weed pollen,cold air,sinus infections,emotions or stress,laughter,house dusting or vacuuming,weather changes,occupational exposures,perfumes,colds or flu,spring (season), (season),fall (season),winter (season),air conditioning Which treatments have been effective for your cough?: oral steroid (Prednisone or Medrol) Is your cough more bothersome at night?: Yes Is sputum produced?: Yes What color is your sputum?: clear,yellow,green Is there significant phlegm production during the night?: No Effective treatments for cou gh and or wheezing Prescription cough medicine:: Clive Covarrubias Rescue inhaler or nebulizer treatment:: Albuterol Oral steroid:: Prednisone Wheezing Do you have recurren t wheezing or a history of wheezing sometime in your life?: Yes Did you have symptoms of asthma as a chi ld?: Yes Did you have frequent respiratory infect ions as a child?: Yes Were you ever hospitalized i n the first 12 months of life for a respiratory infection in childhood?: No Do you still have wheezing?: Yes How often do you get it?: 2-5 times per year Is your wheezing changing?: same List months when wheezing is worse:: April,June,July,August,September,October,November,December,January,March What triggers your wheezing? : exercise,cold air,sinus infections,laughter,weather changes,winter (season) Do you take an inhaled, rescue bronchodi lator medication?: No Have you taken oral steroids (Prednisone or Medrol) in the past?: Yes How many times in the last year?: 1 Nocturnal Symptoms Do you have any of t he following respiratory symptoms at night?: coughing that interrupts sleep Physical Performance How many flights of stairs can you climb without stopping? (Enter 99 for unlimited): 3 If there are limitations, wh at symptoms limit further activity?: cough,shortness of breath Do you have any of the follo wing additional problems?: excessive daytime sleepiness,restless sleep *Infections Vaccination History For children , are childhood vaccines up to date:: Yes Have you ever had a flu shot?: Yes Date of last flu shot?: 05/18/2023 Have you ever had a pneumococcal vaccine (DZI-Dgeqdgn-Nkaxbaowk)?: Yes Have you ever had a tetanus vaccine (DTa p-Tdap-Td)?: Yes Date of last tetanus vaccine?: 11/27/2013 Did it contain pertussis as well?: Yes Ear Infections Do you have frequent ear infecti ons?: Yes How many episodes over the past 12 months?: 5 Did you ever have ear tubes placed to help alleviate recurrent ear infections?: No Did you have exposure to passive cigarette smoke in infancy?: Yes Have you been seen by an wafer polisher or crab steamer to evaluate your immune system function for recurrent ear infections?: No Sinusitis (Sinus infections) Do you have frequen t episodes of sinusitis?: Yes How many episodes over the past 12 months?: 5 Have you been treated with antibiotics for sinusitis?: Yes How many courses of antibiotics for sinusitis in the past year?: 3-5 times What is the longest course of antibiotics you have taken for sinusitis?: 10 days Have you been seen by an wafer polisher or crab steamer to evaluate your immune system function for recurrent sinus infections?: No Sinus Symptoms and Surgery Do you have c hronic or recurrent sinus symptoms?: Yes Do you have a history of nasal polyps?: No Do you have sinus pain?: Yes Do you have a loss of sense of taste?: N o Have you used any of the fol lowing treatments for your sinuses?: nasal spray decongestants,nasal salt water irrigations,oral antihistamines,oral decongestants Have you ever had a sinus CT or X-Ray?: No Have your ever undergone sinus surgery?: No Bronchitis History Do you get frequent bronchiti s?: No Pneumonia History Have you ever had pneumonia or recurrent pneumonia?: Yes How many episodes in your entire life?: 2 Have you been treated with antibiotics for pneumonia? : Yes Were antibiotics oral, IV or both?: oral Have you been hospitalized for treatment?: No Have you been seen by an wafer polisher or crab steamer to evaluate your immune system function for recurrent pneumonia: No Skin and Other Infections Do you get frequent sk in infections (cellulitis)?: No Do you get any other frequent infections ?: No *Atopic dermatitis Atopic dermatitis - Eczema Do you have chronic or recurrent atopic dermatitis or eczema?: Yes When did the eczema start?: Body parts involved?: upper arms,lower arms,outer elbows,elbow creases (AC fossa),scalp,face,neck,front of trunk,legs,backs of knees (popliteal fossa),fingers,hands,ankles,wrists,feet How long do episodes of your eczema last?: continuous How frequently do you have symptoms?: daily What time(s) of the day does the rash occur?: any time (no predilection) Are there any times of the year when your eczema worsens (seasonal exacerbation)?: summer,fall,winter Perceived triggers or provocateurs of eczema?: showering,bathing,temperature changes (change to cold),grass pollen Do symptoms change when you are away from home?: unchanged Do any of the following physical stimuli initiate or worse your rash?: cold water,warm water,hot water,cold wind or weather As the eczema resolves, are there skin changes?: scaling or flaking,hyperpigmentation (darker skin color) *Medication allergy Medication Allergy Do you fe el you are allergic to any medications? : Yes What type of medication?: antibiotic (Penicillin or Amoxicillin or other antimicrobial) How was the medication administered?: oral What was the medication administered for?: ear infection,sinus infection If antibiotic, what type:: penicillin-de rivative Have you been evaluated by a n wafer polisher previously for possible drug allergy?: No *Prior Evaluations and Treatments Prior evaluations and treatments Have you been evaluated by another physician for allergic rhinitis, cough, wheezing, asthma, urticaria, angioedema, atopic dermatitis or eczema?: Yes What type(s) of of provider(s)?: Primary care physician Have you undergone testing for any afore mentioned conditions or symptoms?: No Have you ever been on allergy immunother apy?: No Have you ever passed out during a blood draw, shot or vaccination?: No Last dose of antihistamine: cetirizine (Zyrtec): 10/05/2024 nasal antihistamine (azelast ine, olopatadine, azelastine, Astepro, Patanase): 10/20/2024 Has your antihistamine been effective in controlling any of your symptoms?: No Do you take any other psychiatric medica tion?: Yes Name:: trazadone (Desyrel or Deprax - also goes by many other names),Other Last dose?: 11/12/2024 *Food allergy Food Allergy Do you currently have or have you ever had any proven or suspected food allergies?: Yes What food(s)?: milk What symptoms do you experience when foods are ingested?: nausea,bloating,diarrhea How quickly do symptoms come on after food ingestion?: within 20 minutes Have you ever been hospitalized or treated urgently for symptoms of a severe allergic reaction (anaphylaxis)?: No Do you carry self-injectable epinephrine for your prior reaction(s)?: No Have you previously seen an wafer polisher for evaluation of possible food allergy?: No *Headache Intake: Headache Onset When did your current headache problem begin?: More than 1 year ago Was there a precipitating event to the c urrent headache problem?: None Intake: Headache Characteristics Which o f the following characteristics do you associate with your headache or migraine?: Wake up headaches (headache already developed upon awakening),Can be unilateral or bilateral,Orbital (located around the eyes(s)),Frontal (located in forehead region),Temporal (located in samaritan region),Occipital (located in back of head region),Squeezing or pressure pain,Throbbing or pulsating pain,Sharp or stabbing pain,Headache duration > 4 hours to all day untreated or unsuccessfully treated,Frequency 4 to 14 days/month Alleviating factors: Dark room Aggravating factors: Light/b right light,Noise/loud noise,Movement or physical activity Intake: Headache-associated Aura or Other Symptoms Gastrointestinal symptoms associated with headaches: Decreased appetite Sensory symptoms associated with headaches: Scalp tenderness,Noise sensitivity,Ringing in ears Visual symptoms associated with headache s: Light sensitivity Vestibular symptoms associat ed with headaches: Dizziness/unsteadiness,Lightheadedness,Sensation of movement (vertigo) Mental/Emotional symptoms as sociated with headaches: Poor concentration,Restlessness,Mood change Vasomotor symptoms associated with heada ches: Stuffy nose,Runny nose General symptoms associated with headaches: Fatigue or lack of energy,Neck or shoulder pain,Excessive yawning Intake: Headache Triggers What do you pe rceive as triggers for your headache or migraine?: Stress,Weather changes (barometric pressure change),Hormone changes (e.g. menstrual cycle),Too much or too little caffeine,Seasonal allergies Intake: Headache Previous Testing Have y ou had any previous testing related to your headache or migraine: No Intake: Headache Associated Conditions D o you have concerns about seasonal or year-round allergies?: Yes Do you have concerns about sleep or slee p quality?: No Do you have concerns about y our mood or do you have a history of depression?: No Do you have neck pain or stiffness?: No Do you have a history of prior concussio n?: No Do you have concerns about hormone imbal ances?: No Do you have sinus problems?: Yes Examination Category Sub-Category Detail Notes Category Not es General examination HEENT: pupils equal , round, and reactive to light and accommodation, conjunctiva are injected bilaterally, no tenderness to palpation of the sinuses, TM's without evidence of acute infection, turbinates 4+ swollen and pale inferiorly bilaterally, clear rhinorrhea is present, no polyps noted, no septal perforation, posterior oropharynx is erythematous and cobblestoning is present, erythema on pharyngeal wall, no exudates, no tongue swelling, and uvula is midline Neck, thyroid : supple, non-tender, no anterior cervical lymphadenopathy Heart: RRR, S1-S2, no murmu rs, no rubs, no gallops Lungs: clear to auscultatio n and percussion in all lung wheeler, no wheezes or crackles Extremities: normal ROM, no clubb ing, no cyanosis, no edema General appearance: pleasant, well-devel oped, well-nourished Skin: Mild eczematoid erup tion on her left lateral ankle and left thigh with dry scaly skin but in general cutaneous examination was normal. There was no evidence of dermatographia some urticaria present. Dermatographism, urticaria, angioedema Neurologic exam: unremarkable Oral cavity: normal, no lesions Breasts : not performed Peripheral pulses: normal (2+) bilatera lly Back: normal Genitalia: not performed
--- NOTE | ~2024-12-22 | CT_ITS ---
EXAMINATION: CT abdomen pelvis w con DATE: 12/23/2024 01:59 INDICATION: Abdominal pain. Diarrhea. Fever. TECHNIQUE: Computed tomography (CT) of the abdomen and pelvis was performed with 100 mL Omnipaque 350 intravenous contrast. Automated exposure control and iterative reconstruction technique were employed. The dose-length product was 811.13 mGy-cm. COMPARISON: CT abdomen and pelvis 11/26/2024 FINDINGS: The visualized portions of the lung bases are clear without pneumonia or pleural effusion. The heart size is normal. No pericardial effusion. There is a small sliding hiatal hernia. The liver demonstrates focal steatosis adjacent to ligamentum teres. The gallbladder, spleen, pancreas, adrenal glands, and kidneys are normal. There is wall thickening throughout the colon with areas of surrounding fat stranding, consistent with colitis. The appendix is normal. There are no dilated loops of bowel. There are no pathologically enlarged lymph nodes. There is no free intraperitoneal fluid. There is mild thoracic and lumbar spondylosis. IMPRESSION: 1. Pancolitis, worsened from 11/26/2024. Reviewed, dictated and finalized at location E.
--- OUTSIDE RECORDS SUMMARY | 2024-12-22 22:13 | XMS_ITS | Clinical Summary ---
Author Organization [facility] Medical Office Building A Address [address] [place] [address] Care Team Providers Care Frit Mixer Name Role Phone Johanna Batista MD Primary Care Provide r Eugenia Chavez NP Unavailable [phone] Wayne Fitzpatrick MD Unavailable [phone] Meera Gardner MD Unavailable Allergies Active Allergy Reactions Criticality Noted Date Comments Gluten Diarrhea,Stomach upset Low 12/17/2024 Milk Diarrhea,Stomach upset Low 12/17/2024 Medications Fuentes Fe 04/23, , 1 mg-20 [...] for 12 hours 30 patch 5 Active EPINEPHrine 0.3 mg/0.3 mL auto-injection syringe Inject 0.3 mL (0.3 mg total) under the skin as needed 5 Active lidocaine HCl-hydrocortiso n ac 3-0.5 % cream Apply topically to affected area twice a day for 7 days 28.3 g 5 Active nystatin creamIndications :Diaper Rash Apply topically 2 (two) times a day 30 g 5 12/18/19 26 Active Active Problems Problem Noted Date Diagnosed Date Chronic inflammation of colon 12/19/2024 Hemorrhoids 12/19/2024 Thrombocytosis 2023 Assessment & Plan (06/11/2024 2:38 [...] prn Assessment & Plan (05/18/2023 10:23 AM INSPECTOR OF WEIGHTS AND MEASURES): New concern Not at goal EMILY score [...] loss Assessment & Plan (05/18/2023 11:18 AM INSPECTOR OF WEIGHTS AND MEASURES): She was counseled on the importance of maintaining a healthy weight and the risks of obesity. Weight loss recommended. Encourage 150min/ week of exercise Encourage 1500 calories in a day for weight loss Encounter for wellness examination 05/17/2023 Assessment & Plan (06/08/2024 2:07 PM INSPECTOR OF WEIGHTS AND MEASURES): Labs reviewed and discussed Flu Pap smear follows with ob at [facility] [place] F/u in 1 year for annual Assessment & Plan (05/18/2023 10:15 AM INSPECTOR OF WEIGHTS AND MEASURES): Ordered CBC, cmp, lipid, hgb a1c, HIV, hep c, TSH w/ reflex to t4 gc chlamydia Flu given Pap smear follows with ob at [facility] F/u in 1 year for annual Encounters Date Type Department Care Team Description 12/19/2024 Telephone [facility] Gastroenterology at [address] [place] [address] Mariaelena Renae LPN 12/17/2024 12:45 PM CDT Office Visit [facility] Medical [facility] Primary Care at [address] [place] [address] Johanna Morales MD Hemorrhoids, unspecified hemorrhoid type (Primary Dx) 12/17/2024 Orders Only [facility] Primary Care at [address] [place] [address] Johanna Morales MD Hemorrhoids, unspecified hemorrhoid type (Primary Dx); Chronic inflammation of colon 10/15/2024 3:30 PM CDT Office Visit [facility] Primary Care at [address] [place] [address] Johanna Morales MD Pain of right hip (Primary Dx) from Last 3 Months Immunizations Immunization Administration Dates Next Due DTaP 08/02/2007, 3,04/11/2002,02/09 HPV, Quadrivalent 11/27/2012 HPV9 12/27/2019 Hep A, Pediatric 11/27/2013,11/27/2012 Hep B / HiB 02/09/2002 Hep B, Adolescent or Pediatric 01/10/2003,2001 HiB 01/10/2003,06/12/2002,04/11/2002 IPV 08/02/2007, 3,04/11/2002,02/09 Influenza, Live, Intranasal, Quadrivalent 04/19/2015 Influenza, Quadrivalent, Spl it, Intramuscular 01/06/2018,04/19/2015 Influenza, Quadrivalent, Spl it, Preservative Free, Intramuscular 05/18/2023 Influenza, Unspecified 12/14/2024,2023,05/18/2023(Defer red: Patient Refused),01/07/2023 MMR 08/02/2007,01/10/2003 Meningococcal B, OMV [...] Anxiety disorder Sister 1 Depression Sister 2 Pamlea Mental illness Sister 2 Pamela Relation Name [...] Passive Smoke Exposure: Current Smokeless Tobacco: Never Tobacco Cessation:Ready to Q uit: Not Asked; Counseling Given: Not Answered AUDIT-C Answer Date Recorded Q1: How often [...] on file Legal Sex Female 6:21 PM INSPECTOR OF WEIGHTS AND MEASURES Gender Identity Female 07/01/2023 10:10 AM CDT Sexual Orientation Straight 07/01/2023 10 :10 AM CDT Obstetrics History Last Filed Vital Signs Vital Sign Reading Time Taken Comments Blood Pressure 102/82 12/17/2024 12:38 PM CDT Pulse 101 12/17/2024 12:38 PM CDT Temperature 37.2 C (98.9 F) 10/15/2024 3:21 PM CDT Respiratory Rate 16 12/17/2024 12:38 PM CDT Oxygen Saturation 97% 12/17/2024 12:38 PM CDT Inhaled Oxygen Concentration - - Weight 90.9 kg (200 lb 6.4 oz) 12/17/2024 12:38 PM CDT Height 160 cm (5' 2.99) 12/17/2024 12:38 PM CDT Body Mass Index 35.51 12/17/2024 12:38 PM CDT Plan of Treatment Upcoming Encounters Date Type Department Care Team (Late st Contact Info) Description 02/18/2025 12:00 PM INSPECTOR OF WEIGHTS AND MEASURES Hospital Encounter [facility] 1 [place] [address] Brianna Rubalcava MD [address] [facility] [place] [address] 02/18/2025 12:00 PM INSPECTOR OF WEIGHTS AND MEASURES - 02/18/2025 12:30 PM INSPECTOR OF WEIGHTS AND MEASURES Surgery [address] [address] Brianna Rubalcava MD [address] [facility] [place] [address] COLONOSCOPY Scheduled Procedures Name Priority Associated Diagnoses Date/Ti me COLONOSCOPY Chronic inflammation of colon Hemorrhoids, unspecified hemorrhoid type 02/18/2025 12:00 PM INSPECTOR OF WEIGHTS AND MEASURES Health Maintenance Due Date Last Done Comments Chlamydia and Gonorrhea (GC/CT) Screening 05/19/2024 05/19/2023 Covid-19 Vaccine ( season) 2024 09/16/2020, 08/19/2020 Cervical Cancer Screening 03/21/2025 03/21/2024 Pneumococcal vaccine [...] history exists Hepatitis C Screening Completed 05/19/2023 Influenza Vaccine Completed 12/14/2024, , 05/18/2023, Additional history exists Procedures Procedure Name Priority Date/Time Associated Diagnosis Comments HM PAP SMEAR WITH HPV Routine 03/21/2024 2:14 PM INSPECTOR OF WEIGHTS AND MEASURES HEPATITIS C ANTIBODY Routine 05/19/2023 12:50 PM INSPECTOR OF WEIGHTS AND MEASURES Preventative health care Need for hepatitis C screening test N. GONORRHOEAE/C. TRACHOMATIS AMPLIFICATION Routine 05/19/2023 12:50 PM INSPECTOR OF WEIGHTS AND MEASURES from Last 3 Months or Most Recently Relevant to Health Maintenance Results * (ABNORMAL) HM PAP SMEAR WITH HPV (03/21/2024 2:14 PM INSPECTOR OF WEIGHTS AND MEASURES) Scribed Pap Smear w/HPV Abnormal Historical Provider MD HEALTH MAINTENANCE Final Result * N. gonorrhoeae/C. trachomatis Amplification Urine (05/19/2023 12:50 PM INSPECTOR OF WEIGHTS AND MEASURES) C. trachomatis Not Detected CE [facility] ([place]) Comment:Testing performed by : [facility], [address] [place] [address], [place]., [address] N. gonorrhoeae Not Detected CE [facility] ([place]) Comment: Interpretive Data This assay detects Chlamydia trachomatis and Neisseria gonorrhoeae by nucleic acid amplification testing (NAAT). This assay has been cleared by the [place] Food and Drug administration. The performance characteristics of this test have been verified by the [facility] Molecular Infectious Disease laboratory. The performance characteristics of this test have not been evaluated in individuals less than 14 years of age. Current Interpretive Data was last revised on 2023. Testing performed by: [facility], [address] [place]., [address] Urine 05/19/2023 12:5 0 PM INSPECTOR OF WEIGHTS AND MEASURES 05/19/2023 8:06 PM INSPECTOR OF WEIGHTS AND MEASURES Johanna Batista MD LAB MICROBIOLOGY - GE NERAL ORDERABLES Final Result [facility] [place] 1 [facility] [employer] [address] * Hepatitis C antibody Blood (05/19/2023 12:50 PM INSPECTOR OF WEIGHTS AND MEASURES) Hep C Ab Nonreactive Nonreactive JOS[facility] MIGUEL [...] last revised on 2019. Testing performed by: [facility], [address] [place] [address]., [address] Blood 05/19/2023 12:5 0 PM INSPECTOR OF WEIGHTS AND MEASURES 05/19/2023 9:29 PM INSPECTOR OF WEIGHTS AND MEASURES Narrative [facility] ([place]) - 05/19/2023 10:13 PM INSPECTOR OF WEIGHTS AND MEASURES fasting Johanna Batista MD LAB MICROBIOLOGY - GE NERAL ORDERABLES Final Result [facility] ([place]) 1 [facility] [place] [address] from Last 3 Months or Most Recently Relevant to Health Maintenance Insurance [facility] [employer] Care Teams Frit Mixer Relationship Specialty Start Date End Date Johanna Batista MD [address] [place] [address] [address] PCP - General Family Medicine 05/18/23 Eugenia Chavez NP [address] [facility] [address] [place] [address] Psychiatry 06/11/24 Wayne Fitzpatrick MD [address] [facility] [address] [place] [address] Medical Oncologist/Associate Buyer Hematology and Oncology 06/11/24 Meera Gardner MD [address] [address] Referring Physician Gynecology 06/11/24
--- OUTSIDE RECORDS SUMMARY | 2024-12-22 22:14 | XMS_ITS | Patient Health Record ---
Author Organization [facility] Address [address] [place] [address] Care Team Providers Care Edge Roller Name Role Phone Eugenia Chavez Unavailable [phone] Allergies No Known Allergies Reason For Referral [...] 01/10/2003 Administered MMR Unknown 08/02/2007 Administered Novel [id number], preservative free Unknown 05/18/2023 Administered Pneumococcal conjugate [...] decision-maker Yes Do you have Power of Folder Seamer for Health or Medi juan antonio? No Tobacco Use: Social Info Question Answer Notes Tobacco Control (Standard) Tobacco use: Current smoker Additional Details Category Social Info Options Details Migrated Social History Migrated Social History Alcohol Intake: Occasional 08/05/2023,Tobacco Years: Never smoker 05/19/2023 Problems Problem Type SNOMED Code ICD Code Onset Dates Problem Status W/U Status Risk Notes Problem Generalized anxiety disorder (47405048) Generalized anxiety disorder (F41.1) Active confirmed Vital Signs Heart Rate 98 /min 10/15/2024 Height-cm 160.02 cm 10/15/2024 Blood pressure diastolic 82 mm Hg 10/15/2024 Weight-kg 94.35 kg 10/15/2024 Height 63.00 in 10/15/2024 Blood pressure systolic 130 mm Hg 10/15/2024 Weight 208 lbs 10/15/2024 BMI 36.84 kg/m2 10/15/2024 Encounters Encounter Location Date Provider Diagnosis [facility] [address] [facility] [address] [address] 01/09/2024 Eugenia Scott Generalized anxiety disorder F41.1 [place] [address] [facility] [address] [facility] [address] [place] [address] 04/16/2024 Eugeniaterry Chavez Generalized anxiety disorder F41.[address] [address] 10/15/2024 Eugenia Vitormarely Generalized anxiety disorder F41.[address] [facility] [address] [place] [address] 03/30/2024 Eugenia Scott [address] [address] 07/30/2024 Eugeniaterry Adlermarely Assessments Encounter Date Diagnosis (ICD Code) Assessment Notes Treatment Notes Treatment Clinical Notes Section Notes 10/15/2024 Generalized anxiety disorder (ICD-10 - F41.1) [...] they persist please contact the office. 01/09/2024 Generalized anxiety disorder (ICD-10 - F41.1) [...] Provider Name:Eugenia doherty, 03/18/2025 01:00:00 PM, [address] [facility] [address], [facility], [place], [address], Insurance Providers Payer Name Payer Address Payer Phone Subscriber Number Group Number Insured Name Patient Relationship to Insured Coverage Start Date Coverage End Date [place] [id number] [place] [address] [id number] JASS LYNNE Self - patient is the insured Medical (General) History Medical History History ICD Code Problems: Generalized anxiety disorder Obesity Patient encounter status , Hospitalization History Reason Date(Month/Year) no hx [facility] admissions
[2024-12-22 22:28] VITALS: PULSE 137; RESP 18; TEMP 38.8; O2SAT 99
--- NOTE | 2024-12-22 22:35 | ECG_ITS ---
Test Date: 2024-12-22 22:49:06 Measurements Intervals [place] Rate: 134 P: 30 [place]: 119 QRS: 82 QRSD: 81 T: 1 QT: 331 QTc: 496 Interpretive Statements SINUS TACHYCARDIA WITH SHORT [place] INTERVAL OTHERWISE NORMAL ELECTROCARDIOGRAM No previous ECG available for comparison Electronically Signed On 12-23-2024 08:23:27 CDT by Sami Rooney M.D.
[2024-12-22 22:54] LABS: Hematocrit 39.6 % (37.0-47.0); Hemoglobin 13.0 g/dL (12.0-15.0); Immature Granulocyte Percent A 0.6 % (0-0.5); Lymphocytes Absolute Auto 2.98 K/mm3 (0.9-3.2); Mean Corpuscular HGB Conc 32.8 g/dl (32-36); Mean Corpuscular Hemoglobin 26.6 pg (26-34); Mean Corpuscular Volume 81.0 fl (80-100); Nucleated Red Blood Cells Absolute Auto 0.000 K/mm3 (0.0-0.012); Nucleated Red Blood Cells Perc 0.0 % (0.0-0.2); Platelet Count Result 550 k/mm3 (150-375); Red Blood Count 4.89 M/mm3 (4.2-5.4); White Blood Count 14.5 K/mm3 (4.5-10.0)
[2024-12-22 23:06] LABS: Alanine Aminotransferase 12 U/L (6-35); Albumin Level 3.9 g/dL (3.5-5.1); Alkaline Phosphatase 89 U/L (38-126); Anion Gap 12 mmol/L (4-12); Aspartate Amino Transferase 18 U/L (14-36); Bilirubin,Total 0.5 mg/dL (0.2-1.3); Blood Urea Nitrogen 5 mg/dL (7-17); Calcium 9.3 mg/dL (8.4-10.2); Carbon Dioxide 26 mmol/L (22-30); Chloride 95 mmol/L (98-107); Estimated CRCL calculation 76 ml/min; Estimated Glomerular Filt Rate > 60; Glucose 113 mg/dL (65-110); Lipase 25 U/L (23-300); Potassium 3.5 mmol/L (3.4-5.0); Sodium 133 mmol/L (137-145); Total Protein 8.0 g/dL (6.3-8.2)
[2024-12-22 23:29] VITALS: PULSE 135; O2SAT 99
[2024-12-22 23:30] VITALS: PULSE 135; RESP 15; O2SAT 99
[2024-12-22 23:31] VITALS: BP 120/75; PULSE 133; PULSE 135; RESP 21; RESP 22; TEMP 39.2; O2SAT 100; O2SAT 98
--- NOTE | 2024-12-22 23:39 | ED.ABDPAIN ---
HPI - Abdominal Pain General Chief Complaint: Nausea/Vomiting/Diarrhea <Shonna Solano PA-C - Last Filed: 12/24/24 17:10> Stated Complaint: diarrhea xmonths, n/v <KAITLIN Dill Last Filed: 12/24/24 17:10> Time Seen by Provider: 12/22/24 23:26 <KAITLIN Dill Last Filed: 12/24/24 17:10> Source: patient <KAITLIN Dill Last Filed: 12/24/24 17:10> Mode of arrival: ambulatory <KAITLIN Dill Last Filed: 12/24/24 17:10> Limitations: no limitations <KAITLIN Dill Last Filed: 12/24/24 17:10> History of Present Illness HPI narrative: This is a 24 year old female that presents to the ER for diarrhea. Reports this has been an issue for her over the last month. She is scheduled for a colonoscopy for further evaluation next month. Reports she has had worsening pain and fevers the last couple of days. Reports some nausea and vomiting. Denies dysuria. <KAITLIN Dill Last Filed: 12/24/24 17:10> Related Data Home Medications: Home Medications ?Medication ?Instructions ?Recorded ?Confirmed ?Last Taken ?Type escitalopram oxalate 10 mg tablet 15 mg PO DAILY 09/01/23 02/16/24 Unknown History norethindrone 1 mg-ethinyl 1 tablet PO DAILY 09/01/23 02/16/24 Unknown History estradiol 20 mcg (21)-iron 75 mg (7) tablet (Fuentes Fe 04/23 (28)) <KAITLIN Dill Last Filed: 12/24/24 17:10> Allergies/Adverse Reactions: Allergies Allergy/AdvReac Type Severity Reaction Status Date / Time No Known Allergies Allergy Unknown Verified 12/22/24 22:33 <KAITLIN Dill Last Filed: 12/24/24 17:10> Review of Systems Review of Systems: All systems reviewed & are unremarkable except as noted in HPI and below <Shonna Solano PA-C - Last Filed: 12/24/24 17:10> [facility] Social History Social History: Social History (Updated 12/22/24 @ 23:43 by Shonna Solano PA-C) Smoking status: Current every day smoker Tobacco type: e-cigarettes/vaping <Shonna Solano PA-C - Last Filed: 12/24/24 17:10> Exam Narrative: GENERAL: Well-appearing, well-nourished, and in no acute distress. HEAD: Normocephalic, atraumatic. EYES: EOMI. CHEST: Clear to auscultation. No respiratory distress. No wheezes rales or rhonchi HEART: Regular rate and rhythm. No murmur heard. Normal peripheral pulses. ABDOMEN: Soft, nontender, nondistended, normal active bowel sounds. EXTREMITIES: Normal range of motion. No edema. SKIN: Warm, dry, no rash. NEURO: No focal deficits. Alert and oriented x3. PSYCH: Normal mood and affect RECTAL: External hemorrhoids present, nonthrombosed, no bleeding <Shonna Solano PA-C - Last Filed: 12/24/24 17:10> Course Vital Signs Vital signs: Vital Signs Temperature 101.8 F H 12/22/24 22:28 Pulse Rate 137 H 12/22/24 22:28 Respiratory Rate 18 12/22/24 22:28 Pulse Oximetry 99 12/22/24 22:28 Oxygen Delivery Room Air 12/22/24 22:28 Temperature 98.6 F 12/23/24 04:38 Pulse Rate 67 12/23/24 04:38 Respiratory Rate 14 12/23/24 04:38 Blood Pressure 137/68 12/23/24 04:38 Pulse Oximetry 97 12/23/24 04:38 Oxygen Delivery Room Air 12/22/24 22:28 <Shonna Solano PA-C - Last Filed: 12/24/24 17:10> Vital Signs Temperature 101.8 F H 12/22/24 22:28 Pulse Rate 137 H 12/22/24 22:28 Respiratory Rate 18 12/22/24 22:28 Pulse Oximetry 99 12/22/24 22:28 Oxygen Delivery Room Air 12/22/24 22:28 Temperature 98.6 F 12/23/24 04:38 Pulse Rate 67 12/23/24 04:38 Respiratory Rate 14 12/23/24 04:38 Blood Pressure 137/68 12/23/24 04:38 Pulse Oximetry 97 12/23/24 04:38 Oxygen Delivery Room Air 12/22/24 22:28 <Alissa Bingham MD - Last Filed: 12/23/24 04:51> MDM - Abdominal Pain MDM Narrative Medical decision making narrative: Electronic medical record was reviewed. Patient presented to the ED with complaint of [abdominal pain and vomiting and diarrhea with fevers; no recent antibiotics]. Vitals [were within acceptable limits]. Physical exam revealed soft abdomen, no tenderness.. Based on the patient's history and physical exam, my differential includes but is not limited to [gastritis, gastroenteritis, cholecystitis, pancreatitis, appendicitis]. [IV access was established by nursing staff. Patient was given zofran, fluids, Tylenol]. CBC, BMP, lipase, LFTs, bilirubin and alk phos were obtained. Labs were pertinent for white count 14.5. [Decision was made to obtain a CT-abdomen to evaluate for acute abdominal process. CT-abdomen per radiology interpretation shows pancolitis.] On reevaluation, the patient states that they are feeling much better. There were no witnessed episodes of vomiting in the emergency department. They are not complaining of any new abdominal pain. Repeat examination did not show any significant guarding or rebound. No new tenderness. Her vital signs are improved. At this time I do not feel there is any further emergent treatment to be provided. The patient was given strict return precautions, if they are to develop any worsening abdominal pain, vomiting, or blood in the vomit they are to return to the emergency department immediately. Patient verbally acknowledges understanding these directions. [The patient was informed of the above diagnostic test findings.] They will be discharged home [with prescriptions]. They were advised to follow-up with [their PCP] in 2 days; she already has a colonoscopy scheduled in February. The patient feels that this is appropriate medical decision making and verbalizes an understanding of the discharge instructions. <Alissa Bingham MD - Last Filed: 12/23/24 04:51> Differential Diagnosis Differential diagnosis: Likely diverticulitis, gastroenteritis and other (colitis) <Shonna Solano PA-C - Last Filed: 12/24/24 17:10> Lab Data Attestation: I reviewed the patient's lab results. <Shonna Solano PA-C - Last Filed: 12/24/24 17:10> Result diagrams: 12/22/24 22:45 12/22/24 22:45 <Shonna Solano PA-C - Last Filed: 12/24/24 17:10> Labs: Lab Results 12/22/24 12/22/24 12/23/24 Range/Units 22:45 23:59 00:04 WBC 14.5 H (4.5-10.0) K/mm3 RBC 4.89 (4.2-5.4) M/mm3 Hgb 13.0 (12.0-15.0) g/dL Hct 39.6 (37.0-47.0) % MCV 81.0 (80-100) fl MCH 26.6 (26-34) pg MCHC 32.8 (32-36) g/dl RDW 12.3 (11.5-14.5) % Plt Count 550 H (150-375) k/mm3 MPV 9.2 (7.4-10.4) fl Immature Gran % (Auto) 0.6 H (0-0.5) % Neut % (Auto) 66.2 (45.5-73.1) % Lymph % (Auto) 20.6 (18.3-44.2) % [place] % (Auto) 11.7 H (2.6-8.5) % Eos % (Auto) 0.1 (0-4.4) % Baso % (Auto) 0.8 (0.2-1.2) % Lymph # (Auto) 2.98 (0.9-3.2) K/mm3 [place] # (Auto) 1.7 H (0.1-0.6) K/mm3 Eos # (Auto) 0.0 (0-0.3) K/mm3 Baso # (Auto) 0.1 (0.0-0.1) K/mm3 Abs Immat Gran (auto) 0.09 H (0.00-0.031) K/mm3 Absolute Neuts (auto) 9.6 H (1.3-6.7) K/mm3 Absolute Nucleated RBC 0.000 (0.0-0.012) K/mm3 Nucleated RBC % 0.0 (0.0-0.2) % Sodium 133 L (137-145) mmol/L Potassium 3.5 (3.4-5.0) mmol/L Chloride 95 L (98-107) mmol/L Carbon Dioxide 26 (22-30) mmol/L Anion Gap 12 (4-12) mmol/L BUN 5 L (7-17) mg/dL Creatinine 1.08 H (0.7-1.0) mg/dL Estim Creat Clear Calc 76 ml/min Estimated GFR > 60 (59 - ) Glucose 113 H (65-110) mg/dL Lactic Acid 1.0 (0.7-2.0) mmol/L Calcium 9.3 (8.4-10.2) mg/dL Total Bilirubin 0.5 (0.2-1.3) mg/dL AST 18 (14-36) U/L ALT 12 (6-35) U/L Alkaline Phosphatase 89 (38-126) U/L Total Protein 8.0 (6.3-8.2) g/dL Albumin 3.9 (3.5-5.1) g/dL Lipase 25 (23-300) U/L Urine Color Dark yellow (Yellow) Urine Appearance Cloudy H (Clear) Urine pH 5.5 (5.0-9.0) Ur Specific [place] 1.037 H (1.001-1.035) Urine Protein 3+ H (Negative) mg/dL Urine Glucose (UA) Negative (Negative) mg/dL Urine Ketones 1+ H (Negative) mg/dL Ur Blood (Man) Negative (Negative) Urine Nitrate Negative (Negative) Urine Bilirubin 2+ H (Negative) Urine Urobilinogen 1.0 (<2.0) mg/dL Add Ur Microanalysis Reviewed Leukocyte Esterase Rfl Negative (Negative) CARMINA/UL Urine RBC 6-10 H (0-2) /hpf Urine WBC 0-5 (0-3) /hpf Ur Squamous Epith Cells Occasional (Few) /hpf Urine Bacteria None seen /hpf Urine Casts 0-2 Urine Mucus Present /lpf POC Urine HCG, Qual Negative (Negative) <Shonna Solano PA-C - Last Filed: 12/24/24 17:10> Lab Results 12/22/24 12/22/24 12/23/24 Range/Units 22:45 23:59 00:04 WBC 14.5 H (4.5-10.0) K/mm3 RBC 4.89 (4.2-5.4) M/mm3 Hgb 13.0 (12.0-15.0) g/dL Hct 39.6 (37.0-47.0) % MCV 81.0 (80-100) fl MCH 26.6 (26-34) pg MCHC 32.8 (32-36) g/dl RDW 12.3 (11.5-14.5) % Plt Count 550 H (150-375) k/mm3 MPV 9.2 (7.4-10.4) fl Immature Gran % (Auto) 0.6 H (0-0.5) % Neut % (Auto) 66.2 (45.5-73.1) % Lymph % (Auto) 20.6 (18.3-44.2) % [place] % (Auto) 11.7 H (2.6-8.5) % Eos % (Auto) 0.1 (0-4.4) % Baso % (Auto) 0.8 (0.2-1.2) % Lymph # (Auto) 2.98 (0.9-3.2) K/mm3 [place] # (Auto) 1.7 H (0.1-0.6) K/mm3 Eos # (Auto) 0.0 (0-0.3) K/mm3 Baso # (Auto) 0.1 (0.0-0.1) K/mm3 Abs Immat Gran (auto) 0.09 H (0.00-0.031) K/mm3 Absolute Neuts (auto) 9.6 H (1.3-6.7) K/mm3 Absolute Nucleated RBC 0.000 (0.0-0.012) K/mm3 Nucleated RBC % 0.0 (0.0-0.2) % Sodium 133 L (137-145) mmol/L Potassium 3.5 (3.4-5.0) mmol/L Chloride 95 L (98-107) mmol/L Carbon Dioxide 26 (22-30) mmol/L Anion Gap 12 (4-12) mmol/L BUN 5 L (7-17) mg/dL Creatinine 1.08 H (0.7-1.0) mg/dL Estim Creat Clear Calc 76 ml/min Estimated GFR > 60 (59 - ) Glucose 113 H (65-110) mg/dL Lactic Acid 1.0 (0.7-2.0) mmol/L Calcium 9.3 (8.4-10.2) mg/dL Total Bilirubin 0.5 (0.2-1.3) mg/dL AST 18 (14-36) U/L ALT 12 (6-35) U/L Alkaline Phosphatase 89 (38-126) U/L Total Protein 8.0 (6.3-8.2) g/dL Albumin 3.9 (3.5-5.1) g/dL Lipase 25 (23-300) U/L Urine Color Dark yellow (Yellow) Urine Appearance Cloudy H (Clear) Urine pH 5.5 (5.0-9.0) Ur Specific [place] 1.037 H (1.001-1.035) Urine Protein 3+ H (Negative) mg/dL Urine Glucose (UA) Negative (Negative) mg/dL Urine Ketones 1+ H (Negative) mg/dL Ur Blood (Man) Negative (Negative) Urine Nitrate Negative (Negative) Urine Bilirubin 2+ H (Negative) Urine Urobilinogen 1.0 (<2.0) mg/dL Add Ur Microanalysis Reviewed Leukocyte Esterase Rfl Negative (Negative) CARMINA/UL Urine RBC 6-10 H (0-2) /hpf Urine WBC 0-5 (0-3) /hpf Ur Squamous Epith Cells Occasional (Few) /hpf Urine Bacteria None seen /hpf Urine Casts 0-2 Urine Mucus Present /lpf POC Urine HCG, Qual Negative (Negative) <Alissa Bingham MD - Last Filed: 12/23/24 04:51> Imaging Data Radiologist's impression: ITS Impressions Abdomen/Pelvis CT 12/23/24 08:14 IMPRESSION: 1. Pancolitis, worsened from 11/26/2024. <Shonna Solano PA-C - Last Filed: 12/24/24 17:10> ITS Impressions Abdomen/Pelvis CT 12/23/24 08:14 IMPRESSION: 1. Pancolitis, worsened from 11/26/2024. <Alissa Bingham MD - Last Filed: 12/23/24 04:51> ECG Data EKG #1: ECG completion date: 12/22/24 <KAITLIN Dill Last Filed: 12/24/24 17:10> tachycardia, sinus rhythm, no ST changes and normal QT (borderline) <Shonna Solano PA-C - Last Filed: 12/24/24 17:10> Critical Care Time Critical Care Time Critical Care Time: No <KAITLIN Dill Last Filed: 12/24/24 17:10> Discharge Plan Discharge Clinical Impression: Colitis <KAITLIN Dill Last Filed: 12/24/24 17:10> Patient Disposition: Home <KAITLIN Dill Last Filed: 12/24/24 17:10> Condition: Stable <KAITLIN Dill Last Filed: 12/24/24 17:10> Instructions: Antibiotic Form, Colitis (ED) <KAITLIN Dill Last Filed: 12/24/24 17:10> Additional Instructions: 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 You can take medications as prescribed, please come back to the ER if you have any abdominal pain, cannot keep anything down, or anything else concerning. <KAITLIN Dill Last Filed: 12/24/24 17:10> Patient Language: Serbian <KAITLIN Dill Last Filed: 12/24/24 17:10> Prescriptions: New ondansetron 4 mg tablet,disintegrating 4 mg PO Q8H PRN (Reason: nausea and vomiting) Qty: 10 0RF amoxicillin-pot clavulanate 875-125 mg tablet 1 tablet PO Q12H Qty: 10 0RF acetaminophen [Tylenol Extra Strength] 500 mg tablet 1,000 mg PO Q6H PRN (Reason: pain) Qty: 50 0RF No Action norethindrone-e.estradiol-iron [Fuentes Fe 04/23 (28)] 1 mg-20 mcg (21)/75 mg (7) tablet 1 tablet PO DAILY escitalopram oxalate 10 mg tablet 15 mg PO DAILY polymyxin B sulf-trimethoprim 10,000 unit- 1 mg/mL drops 1 drp LEFT EYE Q3H 7 Days Qty: 10 0RF Rx Instructions: while awake; do not exceed 6 doses in 24 hours ondansetron 4 mg tablet,disintegrating 4 mg PO Q8H PRN (Reason: nausea and vomiting) Qty: 30 0RF hydrocortisone acetate [Anusol-HC] 25 mg suppository 25 mg RECTAL DAILY Qty: 12 0RF <Shonna Solano PA-C - Last Filed: 12/24/24 17:10> Follow-up/Referrals: PHYSICIAN NOT ON STAFF,NONSTAFF [Non-Staff] <Shonna Solano PA-C - Last Filed: 12/24/24 17:10>
[2024-12-22 23:54] VITALS: PULSE 123
[2024-12-23] VITALS (17 sets, daily range): BP systolic 102–137; BP diastolic 60–77; PULSE 67–130; RESP 14–29; TEMP 37; O2SAT 96–100
[2024-12-23 00:05] LABS: BEDSIDEPREGUCG Negative (Negative)
[2024-12-23] MEDS: SODIUM CHLORIDE 0.9% IV 1,000 ML 999 ML IV CONT (00:07)
[2024-12-23] MEDS: ACETAMINOPHEN 500 MG TABLET 1000 MG PO (00:07)
[2024-12-23] MEDS: PIPERACILLIN/TAZOBACTAM SOD 3.375 GM in SODIUM CHLORIDE 0.9% IV 50 ML 100 ML IVPB (00:08)
[2024-12-23 00:16] LABS: Add Urine Microscopic? YES; Appearance Urine Cloudy (Clear); Glucose Urine UA Negative (Negative); Leukocyte Esterase Ur Negative LEU/UL (Negative); Need Manual Microscopic Reviewed; Nitrate Urine Negative (Negative); Non Pathogenic Casts 0-2; Specific Grav Ur 1.037 (1.001-1.035)
[2024-12-23] MEDS: LACTATED RINGERS 1,000 ML 999 ML IV CONT (02:14)
== END 2024-12-23 04:39 | disposition home or self-care (01) ==
PROVIDERS: Physician Assistant; Emergency Provider Emergency Medicine; PCP Family Medicine
DX: K52.9 Noninfective gastroenteritis and colitis, unspecified (principal); F17.290 Nicotine dependence, other tobacco product, uncomplicated; Z79.3 Long term (current) use of hormonal contraceptives; R00.0 Tachycardia, unspecified
CPT/HCPCS: 36415; 74177; 80053; 81001; 81025; 83605; 83690; 85025; 93005; 96361; 96365; 99284; A9270; J2543; J7030; J7120; Q9967